=== PATIENT | female | born 1960 | race Caucasian/White ===

== ENCOUNTER 2016-06-13 16:07 | Emergency (ER) | payer MEDICARE, MEDICAID ==
[~2016-06-13 16:07] MED LIST: ATIV1TAB10 PO; CHLO25TA PO; DRIS50002 PO; DULE200A IN; HYGROTON PO; IBUP600T26 PO; K-TA10TA2 PO; LIPI20TA PO; METF850T PO; NEXI1CAP4 PO; NORCOTAB PO; TOPA25TA10 PO; VALT500T PO; VERA120T2 PO; VITA10002 PO; ZEBE5TAB PO; magnesium OR; voltaren
[2016-06-13] MEDS ORDERED: ONDANSETRON 4MG/2ML VIAL (J2405) As Ordered ONE (19:03)
[2016-06-13] MEDS ORDERED: KETOROLAC 30 MG/ML VIAL (J1885) As Ordered ONE (19:03)
[2016-06-13 19:08] LABS: BASO # 0.1 K/mm3 (0.0-0.2); EOS # 0.3 K/mm3 (0.0-0.50); EOS % 3.3 % (0.0-3.0); LARGE UNSTAINED CELL # 0.2 K/mm3 (0.0-0.4); LARGE UNSTAINED CELL % 1.8 % (0.0-4.0); LYMPH # 2.4 K/mm3 (1.5-4.5); LYMPH % 26.9 % (24.0-44.0); MEAN CORPUSCULAR HEMOGLOBIN 33.1 pg (27.0-33.0); MEAN CORPUSCULAR HGB CONC 34.7 g/dl (32.0-36.5); MEAN CORPUSCULAR VOLUME 95.3 fl (80.0-96.0); MONO # 0.2 K/mm3 (0.0-0.8); MONO % 2.6 % (0.0-5.0); NEUTROPHILS # 5.4 K/mm3 (1.8-7.7); NEUTROPHILS % 64.3 % (36.0-66.0); PLATELET COUNT, AUTOMATED 286 k/mm3 (150-450); RED CELL DISTRIBUTION WIDTH 12.9 % (11.5-14.5); WHITE BLOOD COUNT 8.4 K/mm3 (4.0-10.0)
[2016-06-13 19:28] LABS: ALBUMIN 3.8 GM/DL (3.2-5.2); ALBUMIN/GLOBULIN RATIO 1.12 (1.00-1.93); BILIRUBIN,DIRECT 0.1 MG/DL (0.0-0.2); BILIRUBIN,TOTAL 0.4 MG/DL (0.2-1.0); CALCIUM LEVEL 9.1 MG/DL (8.5-10.1); CREATININE FOR GFR 1.12 MG/DL (0.55-1.02); GLOMERULAR FILTRATION RATE 53.8 (>51); POTASSIUM SERUM 3.4 MEQ/L (3.5-5.1); TOTAL PROTEIN 7.2 GM/DL (6.4-8.2)
[2016-06-13] MEDS ORDERED: ISOVUE-370 76% 100ML VIAL (Q9967) As Ordered ONE (19:42)
--- NOTE | 2016-06-13 20:54 | REPUSA ---
CT of the abdomen and pelvis with contrast Clinical statement: Pain. Technique: Multiple axial CT images were obtained from the base of the lungs through the floor of the pelvis utilizing 5 mm axial slices after administration of nonionic intravenous contrast. Coronal an d sagittal reconstructions were also obtained. Comparison: 12/07/2015. Findings: Chest: The visualized lung bases are clear. A calcified granuloma in the left lung base is stable. Abdomen: The liver, spleen, pancreas, kidneys, gallbladder, and adrenal glands are unremarkable. The aorta is within normal limits. There is no evidence of abdominal lymphadenopathy or ascites. Pelvis: The bowel is unremarkable, with no obstructive or inflammatory changes. The appendix is angel l. The urinary bladder is within normal limits. The other pelvic structures appear grossly intact. Th ere is no evidence of pelvic lymphadenopathy or ascites. Bones: There are no suspicious osseous abnormalities seen. Moderate degenerative disc disease with di sc osteophyte complex at L5/S1 is stable. Impression: Unremarkable CT examination of the abdomen and pelvis. No acute abnormality to explain th e patient's pain. No significant change since the prior study.
--- NOTE | 2016-06-13 21:50 | EDDOCDS ---
Nurse's Notes [facility] Name: Ellen Arizmendi Age: 55 yrs Sex: Female : 1960 Arrival Date: 06/13/2016 Time: 16:07 Bed I2 / M2 Private MD: Dany Escobar Diagnosis: Strain of muscle, fascia and tendon of lower back Presentation: 06/13 16:38 Presenting complaint: Patient states: she has left flank pain - worse with movement and kcs coughing. Adult Sepsis Screening: The patient does not have new or worsening altered mentation. Patient's respiratory rate is less than 22. Systolic blood pressure is greater than 100. Patient has a qSOFA score of 0- Negative Sepsis Screen. Suicide/Homicide risk assessment- the patient denies having any suicidal and/or homicidal ideations and does not present with any other emotional, behavioral or mental health complaints. Status: Patient is not a dental service technician or dependent. Transition of care: patient was not received from another setting of care. 16:38 Acuity: BONNIE Level 3 kcs 16:38 Method Of Arrival: Walkin/Carried/Asstd kcs Triage Assessment: 16:42 General: Appears comfortable, well developed, well nourished, well groomed. Pain: kcs Location: left flank Pain currently is 7 out of 10 on a pain scale. HIV screening NA for this visit Offered previously. Neurological: Level of Consciousness is awake, alert. Respiratory: Airway is patent Respiratory effort is even, unlabored, Respiratory pattern is regular, symmetrical. Derm: Skin is intact, is healthy with good turgor, Skin is dry, Skin is normal. BENEFITS ADVISOR: 16:42 LMP N/A - Hysterectomy kcs Historical: - Allergies: Diovan; Erythromycin; Lisinopril; Propranolol; - Home Meds: 1. atorvastatin 40 mg oral tab 1 tab once daily 2. bisoprolol fumarate 5 mg oral tab once daily 3. Chlorpheniramine Maleate Unknown Oral 4. metformin 850 mg oral tab 2 times per day 5. nortriptyline 35 mg Oral cap daily 6. omeprazole 40 mg oral cpDR once daily 7. verapamil 240 mg Oral TbER 1 tab once daily 8. meclizine 12.5 mg Oral tab 2 times per day 9. Zofran (as hydrochloride) 4 mg oral tab every 8 hours as needed - PMHx: Chronic Renal Insufficiency; Diabetes - NIDDM: controlled; Hypercholesterolemia; Hypertension; Vertigo; - PSHx: Hysterectomy; Knee surgery- Left; Lumbar Puncture; pelvic reconstruction; - Social history: Smoking status: Patient states was never smoker of tobacco. No barriers to communication noted, The patient speaks fluent Italian. - Family history: Not pertinent. - : The pt / caregiver states he / she is not on anticoagulants. Home medication list is obtained from the patient, [employer] import data. - Exposure Risk Screening:: None identified. Screenin:14 Screening information is obtained from the patient. Fall risk: No risks identified. ead Assistance ADL's: requires no assistance with activities of daily living. Abuse/DV Screen: The patient / caregiver reports he/she is: not in a situation that causes fear, pain or injury. Nutritional screening: No deficits noted. Advance Directives: Currently, there is a health care proxy, Primary: Harry Martinez (Friend), phone #[phone]. Secondary: Ewa Samuel (daughter), phone # [phone]. home support is adequate. Assessment: 18:58 General: Appears in no apparent distress, Behavior is appropriate for age, cooperative. srm Neurological: No deficits noted. Respiratory: No deficits noted. GI: Abdomen is non- distended Bowel sounds present X 4 quads. Abd is tender to palpation in epigastric area. Derm: No deficits noted. 20:07 General: Appears in no apparent distress, comfortable, Behavior is appropriate for age, ead cooperative, this nurse accompanied pt to CT for injection. Pt tolerated well. Pt returned to room and provided with warm blanket. Updated of wait time for CT. IV fluids infusing. . Neurological: No deficits noted. Respiratory: Airway is patent Respiratory effort is even, unlabored. Derm: Skin is pink, warm & dry. 21:48 General: Appears in no apparent distress, comfortable, Behavior is appropriate for age, dsf cooperative. Pain: Pain currently is 2 out of 10 on a pain scale. Neurological: Level of Consciousness is awake, alert. Cardiovascular: Capillary refill < 3 seconds. Respiratory: Airway is patent Respiratory effort is even, unlabored, Respiratory pattern is regular, symmetrical. Derm: Skin is pink, warm & dry. Vital Signs: 16:10 BP 143 / 78; Pulse 78; Resp 16; Temp 98.2(O); Pulse Ox 99% ; Weight 83.91 kg; Height 5 cmb ft. 1 in. (154.94 cm); Pain 7/10; 19:39 BP 135 / 68; Pulse 69; Resp 18; Temp 97.5; Pulse Ox 97% ; Pain 3/10; ajs 21:39 BP 162 / 79; Pulse 61; Resp 18; Temp 97.1; Pulse Ox 95% ; Pain 2/10; ajs 16:10 Body Mass Index 34.96 (83.91 kg, 154.94 cm) cmb Vitals: 16:10 Log In Time: June 13, 2016 at 15:49. cmb ED Course: 16:08 Patient visited by Tiny Gutierrez. cmb 16:08 Patient moved to Waiting cmb 16:10 Dany Escobar MD is Private Physician. cmb 16:10 Patient moved to Pre RCE cmb 16:39 Triage Initiated kcs 18:13 Patient moved to Triage 2 bcj 18:14 Jack Bean PA is PHCP. mo1 18:14 Aminata Oglesby MD is Attending Physician. mo1 18:24 Patient visited by Jack Bean PA. mo1 18:29 Patient moved to I2 / M2 ar3 18:31 Urinalysis Sent. ar3 18:31 Urine Culture Sent. ar3 18:57 Basic Metabolic Profile Sent. srm 18:58 The patient / caregiver is instructed regarding the plan of care and ED course. Patient srm has correct armband on for positive identification. Placed in gown. Bed in low position. Call light in reach. 18:58 CBC with Diff Sent. srm 18:58 Lipase Sent. srm 18:58 Liver Profile Sent. srm 18:58 Inserted saline lock: 20 gauge in left antecubital area and blood collected. srm 18:59 Patient visited by Jessica Jordan RN. srm 19:40 Patient visited by Felicia Fowler. ajs 20:37 Patient visited by Deana Barclay,SHARAN. ead 21:33 CT ABD & PELVIS: IV Contrast Only Returned. EDMS 21:37 Dany Escobar MD is Referral Physician. mo1 21:44 Patient visited by Felicia Fowler. ajs 21:48 Discontinued lock intact, bleeding controlled, pressure dressing applied, No dsf redness/swelling at site. No procedures done that require assistance. Administered Medications: 17:10 Drug: Ondansetron 4 mg [ondansetron HCl 2 mg/mL intravenous solution (2 mL)] Route: ead IVP; Site: left antecubital; 17:12 Drug: ketorolac 30 mg [ketorolac 30 mg/mL (1 mL) injection solution (1 mL)] Route: IVP; ead Site: left antecubital; 19:13 Drug: NS 0.9% 1000 ml [sodium chloride 0.9 % intravenous solution] Route: IV; Rate: ead bolus; Site: left antecubital; 21:48 Follow up: IV Status: Completed infusion; IV Intake: 1000ml dsf Intake: 21:48 IV: 1000.00ml; Total: 1000.00ml. dsf Order Results: Lab Order: Basic Metabolic Profile; [facility] 06/13/16 18:55 Test: GLUCOSE, FASTING; Value: 102; Range: 70-105; Units: MG/DL; Status: F Test: BLOOD UREA NITROGEN; Value: 21; Range: 7-18; Abnormal: Above high normal; Units: MG/DL; Status: F Test: CREATININE FOR GFR; Value: 1.12; Range: 0.55-1.02; Abnormal: Above high normal; Units: MG/DL; Status: F Test: GLOMERULAR FILTRATION RATE; Value: 53.8; Range: >51; Status: F Test: SODIUM LEVEL; Value: 135; Range: 136-145; Abnormal: Below low normal; Units: MEQ/L; Status: F Test: POTASSIUM SERUM; Value: 3.4; Range: 3.5-5.1; Abnormal: Below low normal; Units: MEQ/L; Status: F Test: CHLORIDE LEVEL; Value: 96; Range: 98-107; Abnormal: Below low normal; Units: MEQ/L; Status: F Test: CARBON DIOXIDE LEVEL; Value: 30; Range: 21-32; Units: MEQ/L; Status: F Test: ANION GAP; Value: 9; Range: 8-16; Units: MEQ/L; Status: F Test: CALCIUM LEVEL; Value: 9.1; Range: 8.5-10.1; Units: MG/DL; Status: F Test Note: ; Units are mL/min/1.73 m2 Chronic Kidney Disease Staging per NKF: Stage I & II GFR >=60 Normal to Mildly Decreased Stage III GFR 30-59 Moderately Decreased Stage IV GFR 15-29 Severely Decreased Stage V GFR <15 Very Little GFR Left ESRD GFR <15 on FILER METAL PATTERNS Lab Order: CBC with Diff; [facility] 06/13/16 18:55 Test: WHITE BLOOD COUNT; Value: 8.4; Range: 4.0-10.0; Units: K/mm3; Status: F Test: RED BLOOD COUNT; Value: 3.91; Range: 4.00-5.40; Abnormal: Below low normal; Units: M/mm3; Status: F Test: HEMOGLOBIN; Value: 12.9; Range: 12.0-16.0; Units: g/dl; Status: F Test: HEMATOCRIT; Value: 37.3; Range: 36.0-47.0; Units: %; Status: F Test: MEAN CORPUSCULAR VOLUME; Value: 95.3; Range: 80.0-96.0; Units: fl; Status: F Test: MEAN CORPUSCULAR HEMOGLOBIN; Value: 33.1; Range: 27.0-33.0; Abnormal: Above high normal; Units: pg; Status: F Test: MEAN CORPUSCULAR HGB CONC; Value: 34.7; Range: 32.0-36.5; Units: g/dl; Status: F Test: RED CELL DISTRIBUTION WIDTH; Value: 12.9; Range: 11.5-14.5; Units: %; Status: F Test: PLATELET COUNT, AUTOMATED; Value: 286; Range: 150-450; Units: k/mm3; Status: F Test: NEUTROPHILS %; Value: 64.3; Range: 36.0-66.0; Units: %; Status: F Test: LYMPH %; Value: 26.9; Range: 24.0-44.0; Units: %; Status: F Test: MONO %; Value: 2.6; Range: 0.0-5.0; Units: %; Status: F Test: EOS %; Value: 3.3; Range: 0.0-3.0; Abnormal: Above high normal; Units: %; Status: F Test: BASO %; Value: 1.0; Range: 0.0-1.0; Units: %; Status: F Test: LARGE UNSTAINED CELL %; Value: 1.8; Range: 0.0-4.0; Units: %; Status: F Test: NEUTROPHILS #; Value: 5.4; Range: 1.8-7.7; Units: K/mm3; Status: F Test: LYMPH #; Value: 2.4; Range: 1.5-4.5; Units: K/mm3; Status: F Test: MONO #; Value: 0.2; Range: 0.0-0.8; Units: K/mm3; Status: F Test: EOS #; Value: 0.3; Range: 0.0-0.50; Units: K/mm3; Status: F Test: BASO #; Value: 0.1; Range: 0.0-0.2; Units: K/mm3; Status: F Test: LARGE UNSTAINED CELL #; Value: 0.2; Range: 0.0-0.4; Units: K/mm3; Status: F Lab Order: Lipase; SPEC'M 06/13/16 18:55 Test: LIPASE; Value: 111; Range: 73-393; Units: U/L; Status: F Lab Order: Liver Profile; SPEC'M 06/13/16 18:55 Test: AST/SGOT; Value: 10; Range: 15-37; Abnormal: Below low normal; Units: U/L; Status: F Test: ALT/SGPT; Value: 22; Range: 12-78; Units: U/L; Status: F Test: ALKALINE PHOSPHATASE; Value: 83; Range: 45-117; Units: U/L; Status: F Test: BILIRUBIN,TOTAL; Value: 0.4; Range: 0.2-1.0; Units: MG/DL; Status: F Test: BILIRUBIN,DIRECT; Value: 0.1; Range: 0.0-0.2; Units: MG/DL; Status: F Test: TOTAL PROTEIN; Value: 7.2; Range: 6.4-8.2; Units: GM/DL; Status: F Test: ALBUMIN; Value: 3.8; Range: 3.2-5.2; Units: GM/DL; Status: F Test: ALBUMIN/GLOBULIN RATIO; Value: 1.12; Range: 1.00-1.93; Status: F Lab Order: Urinalysis; SPEC'M 06/13/16 18:31 Test: APPEARANCE, URINE; Value: CLEAR; Range: CLEAR; Status: F Test: COLOR, URINE; Value: YELLOW; Range: YELLOW; Status: F Test: PH,URINE; Value: 7.0; Range: 5.0-9.0; Units: UNITS; Status: F Test: SPECIFIC GRAVITY URINE AUTO; Value: 1.025; Range: 1.002-1.035; Status: F Test: PROTEIN, URINE AUTO; Value: NEGATIVE; Range: NEGATIVE; Units: mg/dL; Status: F Test: GLUCOSE, URINE (UA) AUTO; Value: NEGATIVE; Range: NEGATIVE; Units: mg/dL; Status: F Test: KETONE, URINE AUTO; Value: TRACE; Range: NEGATIVE; Abnormal: Above high normal; Units: mg/dL; Status: F Test: UROBILINOGEN, URINE AUTO; Value: 2.0; Range: 0.0-2.0; Abnormal: Above high normal; Units: mg/dL; Status: F Test: BILIRUBIN, URINE AUTO; Value: NEGATIVE; Range: NEGATIVE; Status: F Test: NITRITE, URINE AUTO; Value: NEGATIVE; Range: NEGATIVE; Status: F Test: LEUKOCYTE ESTERASE, URINE AUTO; Value: NEGATIVE; Range: NEGATIVE; Status: F Test: BLOOD, URINE BLOOD; Value: NEGATIVE; Range: NEGATIVE; Status: F Test: WBC, URINE AUTO; Value: 1; Range: 0-3; Units: /HPF; Status: F Test: RBC, URINE AUTO; Value: 3; Range: 0-3; Units: /HPF; Status: F Test: BACTERIA, URINE AUTO; Value: NEGATIVE; Range: NEGATIVE; Status: F Test: SQUAMOUS EPITHELIAL CELL UR AU; Value: 0; Range: 0-6; Units: /HPF; Status: F Test: MUCUS, URINE; Value: SMALL; Range: NEGATIVE; Status: F Test: HYALINE CAST, URINE AUTO; Value: 0; Range: 0-1; Units: /LPF; Status: F Radiology Order: CT ABD & PELVIS: IV Contrast Only Test: CT ABD & PELVIS: IV Contrast Only REASON FOR EXAMINATION: left abd pain, left flank luis felipe; ; CT of the abdomen and pelvis with contrast; Clinical statement: Pain.; Technique: Multiple axial CT images were obtained from the base of the lungs through the floor of the; pelvis utilizing 5 mm axial slices after administration of nonionic intravenous contrast. Coronal an; d sagittal reconstructions were also obtained.; Comparison: 12/07/2015.; Findings:; Chest: The visualized lung bases are clear. A calcified granuloma in the left lung base is stable.; Abdomen: The liver, spleen, pancreas, kidneys, gallbladder, and adrenal glands are unremarkable. The; aorta is within normal limits. There is no evidence of abdominal lymphadenopathy or ascites.; Pelvis: The bowel is unremarkable, with no obstructive or inflammatory changes. The appendix is angel; l. The urinary bladder is within normal limits. The other pelvic structures appear grossly intact. Th; ere is no evidence of pelvic lymphadenopathy or ascites.; Bones: There are no suspicious osseous abnormalities seen. Moderate degenerative disc disease with di; sc osteophyte complex at L5/S1 is stable.; Impression: Unremarkable CT examination of the abdomen and pelvis. No acute abnormality to explain th; e patient's pain. No significant change since the prior study.; ; Outcome: 21:37 Discharge ordered by Provider. mo1 21:48 Discharge Assessment: Patient awake, alert and oriented x 3. No cognitive and/or dsf functional deficits noted. Patient verbalized understanding of disposition instructions. patient administered narcotics - no. The following High Risk Discharge criteria are identified: None. Discharged to home ambulatory. Condition: stable. Discharge instructions given to patient, Instructed on discharge instructions, follow up and referral plans. medication usage, Demonstrated understanding of instructions, medications, Pt was receptive of discharge instructions/ teaching. Prescriptions given X 1. Property sent home with patient. 21:49 CT Study completed. dsf 21:49 Patient left the ED. f Signatures: Dispatcher [employer] EDMS Erica Ross RN Alexi Bruno RN RN bcj Michelson, Staci, RN RN srm Rabon, Alicia, BENCH GRINDER BENCH GRINDER ar3 Ryanne Gu RN RN dsf Felicia Fowler [place] cmb O'Hagan, Michael, PA PA mo1 Deana Barclay RN RN ead MTDD
--- NOTE | 2016-06-13 21:50 | EDDOCDS ---
Physician Documentation [facility] Name: Ellen Arizmendi Age: 55 yrs Sex: Female : 1960 Arrival Date: 06/13/2016 Time: 16:07 Bed I2 / M2 Private MD: Dany Escobar Disposition: 06/13/16 21:37 Discharged to Home/Self Care. Impression: Strain of muscle, fascia and tendon of lower back. - Condition is Stable. - Discharge Instructions: Back Pain, Adult, Muscle Strain. - Prescriptions for Ibuprofen 800 mg Oral Tablet - take 1 tablet by ORAL route every 8 hours As needed take with food; 30 tablet. - Medication Reconciliation, Local Pharmacy Hours form. - Follow up: Dany Escobar MD; When: Call to arrange an appointment; Reason: Recheck today's complaints, Continuance of care. - Problem is new. - Symptoms have improved. Historical: - Allergies: Diovan; Erythromycin; Lisinopril; Propranolol; - Home Meds: 1. atorvastatin 40 mg oral tab 1 tab once daily 2. bisoprolol fumarate 5 mg oral tab once daily 3. Chlorpheniramine Maleate Unknown Oral 4. metformin 850 mg oral tab 2 times per day 5. nortriptyline 35 mg Oral cap daily 6. omeprazole 40 mg oral cpDR once daily 7. verapamil 240 mg Oral TbER 1 tab once daily 8. meclizine 12.5 mg Oral tab 2 times per day 9. Zofran (as hydrochloride) 4 mg oral tab every 8 hours as needed - PMHx: Chronic Renal Insufficiency; Diabetes - NIDDM: controlled; Hypercholesterolemia; Hypertension; Vertigo; - PSHx: Hysterectomy; Knee surgery- Left; Lumbar Puncture; pelvic reconstruction; - Social history: Smoking status: Patient states was never smoker of tobacco. No barriers to communication noted, The patient speaks fluent Yoruba. - Family history: Not pertinent. - : The pt / caregiver states he / she is not on anticoagulants. Home medication list is obtained from the patient, [employer] import data. - Exposure Risk Screening:: None identified. 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 1 in. (154.94 cm); Pain 7/10; 19:39 BP 135 / 68; Pulse 69; Resp 18; Temp 97.5; Pulse Ox 97% ; Pain 3/10; ajs 21:39 BP 162 / 79; Pulse 61; Resp 18; Temp 97.1; Pulse Ox 95% ; Pain 2/10; ajs 16:10 Body Mass Index 34.96 (83.91 kg, 154.94 cm) cmb MDM: 18:19 NS 0.9% 1000 ml IV at bolus once ordered. mo1 18:19 Ondansetron 4 mg IVP once ordered. mo1 18:19 ketorolac 30 mg IVP once ordered. mo1 18:19 Undress patient appropriately for examination ordered. mo1 18:21 Basic Metabolic Profile Ordered. EDMS 18:21 CBC with Diff Ordered. EDMS 18:21 Lipase Ordered. EDMS 18:21 Liver Profile Ordered. EDMS 18:21 Urinalysis Ordered. EDMS 18:21 Urine Culture Ordered. EDMS 18:21 NOTHING BY MOUTH+DIET ordered. EDMS 19:11 CBC with Diff Reviewed. mo1 19:22 Urinalysis Reviewed. mo1 19:40 CT ABD & PELVIS: IV Contrast Only Ordered. EDMS 19:45 Basic Metabolic Profile Reviewed. mo1 19:45 Liver Profile Reviewed. mo1 19:45 Lipase Reviewed. mo1 21:03 Financial registration complete. [id number] Administered Medications: 17:10 Drug: Ondansetron 4 mg [ondansetron HCl 2 mg/mL intravenous solution (2 mL)] Route: ead IVP; Site: left antecubital; 17:12 Drug: ketorolac 30 mg [ketorolac 30 mg/mL (1 mL) injection solution (1 mL)] Route: IVP; ead Site: left antecubital; 19:13 Drug: NS 0.9% 1000 ml [sodium chloride 0.9 % intravenous solution] Route: IV; Rate: ead bolus; Site: left antecubital; 21:48 Follow up: IV Status: Completed infusion; IV Intake: 1000ml dsf Signatures: Dispatcher [employer] Erica Lorenzo RN RN kcs Michelson, Staci, RN RN srm Fuller, Desiree, RN RN dsf Jack Bean PA PA mo1 Zulma Valencia, Reg Reg [id number] Deana Barclay RN MTDD
--- NOTE | 2016-06-15 22:50 | EDDOCDS ---
Nurse's Notes Name: Ellen Arizmendi Age: 55 yrs Sex: Female : 1960 Arrival Date: 06/13/2016 Time: 16:07 Bed I2 / M2 Private MD: Dany Escobar Diagnosis: Strain of muscle, fascia and tendon of lower back Presentation: 06/13 16:38 Presenting complaint: Patient states: she has left flank pain - worse with movement and kcs coughing. Adult Sepsis Screening: The patient does not have new or worsening altered mentation. Patient's respiratory rate is less than 22. Systolic blood pressure is greater than 100. Patient has a qSOFA score of 0- Negative Sepsis Screen. Suicide/Homicide risk assessment- the patient denies having any suicidal and/or homicidal ideations and does not present with any other emotional, behavioral or mental health complaints. Status: Patient is not a automotive fuel injection servicer or dependent. Transition of care: patient was not received from another setting of care. 16:38 Acuity: BONNIE Level 3 kcs 16:38 Method Of Arrival: Walkin/Carried/Asstd kcs Triage Assessment: 16:42 General: Appears comfortable, well developed, well nourished, well groomed. Pain: kcs Location: left flank Pain currently is 7 out of 10 on a pain scale. HIV screening NA for this visit Offered previously. Neurological: Level of Consciousness is awake, alert. Respiratory: Airway is patent Respiratory effort is even, unlabored, Respiratory pattern is regular, symmetrical. Derm: Skin is intact, is healthy with good turgor, Skin is dry, Skin is normal. 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 atorvastatin 40 mg oral tab 1 tab once daily 2. bisoprolol fumarate 5 mg oral tab once daily 3. Chlorpheniramine Maleate Unknown Oral 4. metformin 850 mg oral tab 2 times per day 5. nortriptyline 35 mg Oral cap daily 6. omeprazole 40 mg oral cpDR once daily 7. verapamil 240 mg Oral TbER 1 tab once daily 8. meclizine 12.5 mg Oral tab 2 times per day 9. Zofran (as hydrochloride) 4 mg oral tab every 8 hours as needed - PMHx: Chronic Renal Insufficiency; Diabetes - NIDDM: controlled; Hypercholesterolemia; Hypertension; Vertigo; - PSHx: Hysterectomy; Knee surgery- Left; Lumbar Puncture; pelvic reconstruction; - Social history: Smoking status: Patient states was never smoker of tobacco. No barriers to communication noted, The patient speaks fluent Bruneian. - Family history: Not pertinent. - : The pt / caregiver states he / she is not on anticoagulants. Home medication list is obtained from the patient, [employer] import data. - Exposure Risk Screening:: None identified. Screenin:14 Screening information is obtained from the patient. Fall risk: No risks identified. ead Assistance ADL's: requires no assistance with activities of daily living. Abuse/DV Screen: The patient / caregiver reports he/she is: not in a situation that causes fear, pain or injury. Nutritional screening: No deficits noted. Advance Directives: Currently, there is a health care proxy, Primary: Harry Martinez (Friend), phone #[phone]. Secondary: Ewa Samuel (daughter), phone # [phone]. home support is adequate. Assessment: 18:58 General: Appears in no apparent distress, Behavior is appropriate for age, cooperative. srm Neurological: No deficits noted. Respiratory: No deficits noted. GI: Abdomen is non- distended Bowel sounds present X 4 quads. Abd is tender to palpation in epigastric area. Derm: No deficits noted. 20:07 General: Appears in no apparent distress, comfortable, Behavior is appropriate for age, ead cooperative, this nurse accompanied pt to CT for injection. Pt tolerated well. Pt returned to room and provided with warm blanket. Updated of wait time for CT. IV fluids infusing. . Neurological: No deficits noted. Respiratory: Airway is patent Respiratory effort is even, unlabored. Derm: Skin is pink, warm & dry. 21:48 General: Appears in no apparent distress, comfortable, Behavior is appropriate for age, dsf cooperative. Pain: Pain currently is 2 out of 10 on a pain scale. Neurological: Level of Consciousness is awake, alert. Cardiovascular: Capillary refill < 3 seconds. Respiratory: Airway is patent Respiratory effort is even, unlabored, Respiratory pattern is regular, symmetrical. Derm: Skin is pink, warm & dry. Vital Signs: 16:10 BP 143 / 78; Pulse 78; Resp 16; Temp 98.2(O); Pulse Ox 99% ; Weight 83.91 kg; Height 5 cmb ft. 1 in. (154.94 cm); Pain 7/10; 19:39 BP 135 / 68; Pulse 69; Resp 18; Temp 97.5; Pulse Ox 97% ; Pain 3/10; ajs 21:39 BP 162 / 79; Pulse 61; Resp 18; Temp 97.1; Pulse Ox 95% ; Pain 2/10; ajs 16:10 Body Mass Index 34.96 (83.91 kg, 154.94 cm) cmb Vitals: 16:10 Log In Time: June 13, 2016 at 15:49. cmb ED Course: 16:08 Patient visited by Tiny Gutierrez. cmb 16:08 Patient moved to Waiting cmb 16:10 Dany Escobar MD is Private Physician. cmb 16:10 Patient moved to Pre RCE cmb 16:39 Triage Initiated kcs 18:13 Patient moved to Triage 2 bcj 18:14 Jack Bean PA is PHCP. mo1 18:14 Aminata Oglesby MD is Attending Physician. mo1 18:24 Patient visited by Jack Bean PA. mo1 18:29 Patient moved to I2 / M2 ar3 18:31 Urinalysis Sent. ar3 18:31 Urine Culture Sent. ar3 18:57 Basic Metabolic Profile Sent. srm 18:58 The patient / caregiver is instructed regarding the plan of care and ED course. Patient srm has correct armband on for positive identification. Placed in gown. Bed in low position. Call light in reach. 18:58 CBC with Diff Sent. srm 18:58 Lipase Sent. srm 18:58 Liver Profile Sent. srm 18:58 Inserted saline lock: 20 gauge in left antecubital area and blood collected. srm 18:59 Patient visited by Jessica Jordan RN. srm 19:40 Patient visited by Felicia Fowler. ajs 20:37 Patient visited by Deana Barclay,SHARAN. ead 21:33 CT ABD & PELVIS: IV Contrast Only Returned. EDMS 21:37 Dany Escobar MD is Referral Physician. mo1 21:44 Patient visited by Felicia Fowler. ajs 21:48 Discontinued lock intact, bleeding controlled, pressure dressing applied, No dsf redness/swelling at site. No procedures done that require assistance. 22:51 [facility] Payment Agreement was scanned into dINK and attached to record. [email or web address] 06/14 11:27 T-Sheet-- Draft Copy was scanned into dINK and attached to record. gb Administered Medications: 06/13 17:10 Drug: Ondansetron 4 mg [ondansetron HCl 2 mg/mL intravenous solution (2 mL)] Route: ead IVP; Site: left antecubital; 17:12 Drug: ketorolac 30 mg [ketorolac 30 mg/mL (1 mL) injection solution (1 mL)] Route: IVP; ead Site: left antecubital; 19:13 Drug: NS 0.9% 1000 ml [sodium chloride 0.9 % intravenous solution] Route: IV; Rate: ead bolus; Site: left antecubital; 21:48 Follow up: IV Status: Completed infusion; IV Intake: 1000ml dsf Intake: 21:48 IV: 1000.00ml; Total: 1000.00ml. dsf Order Results: Lab Order: Basic Metabolic Profile; SPEC'M 06/13/16 18:55 Test: GLUCOSE, FASTING; Value: 102; Range: 70-105; Units: MG/DL; Status: F Test: BLOOD UREA NITROGEN; Value: 21; Range: 7-18; Abnormal: Above high normal; Units: MG/DL; Status: F Test: CREATININE FOR GFR; Value: 1.12; Range: 0.55-1.02; Abnormal: Above high normal; Units: MG/DL; Status: F Test: GLOMERULAR FILTRATION RATE; Value: 53.8; Range: >51; Status: F Test: SODIUM LEVEL; Value: 135; Range: 136-145; Abnormal: Below low normal; Units: MEQ/L; Status: F Test: POTASSIUM SERUM; Value: 3.4; Range: 3.5-5.1; Abnormal: Below low normal; Units: MEQ/L; Status: F Test: CHLORIDE LEVEL; Value: 96; Range: 98-107; Abnormal: Below low normal; Units: MEQ/L; Status: F Test: CARBON DIOXIDE LEVEL; Value: 30; Range: 21-32; Units: MEQ/L; Status: F Test: ANION GAP; Value: 9; Range: 8-16; Units: MEQ/L; Status: F Test: CALCIUM LEVEL; Value: 9.1; Range: 8.5-10.1; Units: MG/DL; Status: F Test Note: ; Units are mL/min/1.73 m2 Chronic Kidney Disease Staging per NKF: Stage I & II GFR >=60 Normal to Mildly Decreased Stage III GFR 30-59 Moderately Decreased Stage IV GFR 15-29 Severely Decreased Stage V GFR <15 Very Little GFR Left ESRD GFR <15 on SECONDARY SOCIAL STUDIES TEACHER Lab Order: CBC with Diff; SPEC'M 06/13/16 18:55 Test: WHITE BLOOD COUNT; Value: 8.4; Range: 4.0-10.0; Units: K/mm3; Status: F Test: RED BLOOD COUNT; Value: 3.91; Range: 4.00-5.40; Abnormal: Below low normal; Units: M/mm3; Status: F Test: HEMOGLOBIN; Value: 12.9; Range: 12.0-16.0; Units: g/dl; Status: F Test: HEMATOCRIT; Value: 37.3; Range: 36.0-47.0; Units: %; Status: F Test: MEAN CORPUSCULAR VOLUME; Value: 95.3; Range: 80.0-96.0; Units: fl; Status: F Test: MEAN CORPUSCULAR HEMOGLOBIN; Value: 33.1; Range: 27.0-33.0; Abnormal: Above high normal; Units: pg; Status: F Test: MEAN CORPUSCULAR HGB CONC; Value: 34.7; Range: 32.0-36.5; Units: g/dl; Status: F Test: RED CELL DISTRIBUTION WIDTH; Value: 12.9; Range: 11.5-14.5; Units: %; Status: F Test: PLATELET COUNT, AUTOMATED; Value: 286; Range: 150-450; Units: k/mm3; Status: F Test: NEUTROPHILS %; Value: 64.3; Range: 36.0-66.0; Units: %; Status: F Test: LYMPH %; Value: 26.9; Range: 24.0-44.0; Units: %; Status: F Test: MONO %; Value: 2.6; Range: 0.0-5.0; Units: %; Status: F Test: EOS %; Value: 3.3; Range: 0.0-3.0; Abnormal: Above high normal; Units: %; Status: F Test: BASO %; Value: 1.0; Range: 0.0-1.0; Units: %; Status: F Test: LARGE UNSTAINED CELL %; Value: 1.8; Range: 0.0-4.0; Units: %; Status: F Test: NEUTROPHILS #; Value: 5.4; Range: 1.8-7.7; Units: K/mm3; Status: F Test: LYMPH #; Value: 2.4; Range: 1.5-4.5; Units: K/mm3; Status: F Test: MONO #; Value: 0.2; Range: 0.0-0.8; Units: K/mm3; Status: F Test: EOS #; Value: 0.3; Range: 0.0-0.50; Units: K/mm3; Status: F Test: BASO #; Value: 0.1; Range: 0.0-0.2; Units: K/mm3; Status: F Test: LARGE UNSTAINED CELL #; Value: 0.2; Range: 0.0-0.4; Units: K/mm3; Status: F Lab Order: Lipase; SPEC' 06/13/16 18:55 Test: LIPASE; Value: 111; Range: 73-393; Units: U/L; Status: F Lab Order: Liver Profile; SPEC' 06/13/16 18:55 Test: AST/SGOT; Value: 10; Range: 15-37; Abnormal: Below low normal; Units: U/L; Status: F Test: ALT/SGPT; Value: 22; Range: 12-78; Units: U/L; Status: F Test: ALKALINE PHOSPHATASE; Value: 83; Range: 45-117; Units: U/L; Status: F Test: BILIRUBIN,TOTAL; Value: 0.4; Range: 0.2-1.0; Units: MG/DL; Status: F Test: BILIRUBIN,DIRECT; Value: 0.1; Range: 0.0-0.2; Units: MG/DL; Status: F Test: TOTAL PROTEIN; Value: 7.2; Range: 6.4-8.2; Units: GM/DL; Status: F Test: ALBUMIN; Value: 3.8; Range: 3.2-5.2; Units: GM/DL; Status: F Test: ALBUMIN/GLOBULIN RATIO; Value: 1.12; Range: 1.00-1.93; Status: F Lab Order: Urinalysis; SPEC'M 06/13/16 18:31 Test: APPEARANCE, URINE; Value: CLEAR; Range: CLEAR; Status: F Test: COLOR, URINE; Value: YELLOW; Range: YELLOW; Status: F Test: PH,URINE; Value: 7.0; Range: 5.0-9.0; Units: UNITS; Status: F Test: SPECIFIC GRAVITY URINE AUTO; Value: 1.025; Range: 1.002-1.035; Status: F Test: PROTEIN, URINE AUTO; Value: NEGATIVE; Range: NEGATIVE; Units: mg/dL; Status: F Test: GLUCOSE, URINE (UA) AUTO; Value: NEGATIVE; Range: NEGATIVE; Units: mg/dL; Status: F Test: KETONE, URINE AUTO; Value: TRACE; Range: NEGATIVE; Abnormal: Above high normal; Units: mg/dL; Status: F Test: UROBILINOGEN, URINE AUTO; Value: 2.0; Range: 0.0-2.0; Abnormal: Above high normal; Units: mg/dL; Status: F Test: BILIRUBIN, URINE AUTO; Value: NEGATIVE; Range: NEGATIVE; Status: F Test: NITRITE, URINE AUTO; Value: NEGATIVE; Range: NEGATIVE; Status: F Test: LEUKOCYTE ESTERASE, URINE AUTO; Value: NEGATIVE; Range: NEGATIVE; Status: F Test: BLOOD, URINE BLOOD; Value: NEGATIVE; Range: NEGATIVE; Status: F Test: WBC, URINE AUTO; Value: 1; Range: 0-3; Units: /HPF; Status: F Test: RBC, URINE AUTO; Value: 3; Range: 0-3; Units: /HPF; Status: F Test: BACTERIA, URINE AUTO; Value: NEGATIVE; Range: NEGATIVE; Status: F Test: SQUAMOUS EPITHELIAL CELL UR AU; Value: 0; Range: 0-6; Units: /HPF; Status: F Test: MUCUS, URINE; Value: SMALL; Range: NEGATIVE; Status: F Test: HYALINE CAST, URINE AUTO; Value: 0; Range: 0-1; Units: /LPF; Status: F Lab Order: Urine Culture; SPEC'M 06/13/16 18:31 Test: URINE CULTURE; Value: URINE CULTURE RESULT NO GROWTH; Status: F Radiology Order: CT ABD & PELVIS: IV Contrast Only Test: CT ABD & PELVIS: IV Contrast Only REASON FOR EXAMINATION: left abd pain, left flank luis felipe; ; CT of the abdomen and pelvis with contrast; Clinical statement: Pain.; Technique: Multiple axial CT images were obtained from the base of the lungs through the floor of the; pelvis utilizing 5 mm axial slices after administration of nonionic intravenous contrast. Coronal an; d sagittal reconstructions were also obtained.; Comparison: 12/07/2015.; Findings:; Chest: The visualized lung bases are clear. A calcified granuloma in the left lung base is stable.; Abdomen: The liver, spleen, pancreas, kidneys, gallbladder, and adrenal glands are unremarkable. The; aorta is within normal limits. There is no evidence of abdominal lymphadenopathy or ascites.; Pelvis: The bowel is unremarkable, with no obstructive or inflammatory changes. The appendix is angel; l. The urinary bladder is within normal limits. The other pelvic structures appear grossly intact. Th; ere is no evidence of pelvic lymphadenopathy or ascites.; Bones: There are no suspicious osseous abnormalities seen. Moderate degenerative disc disease with di; sc osteophyte complex at L5/S1 is stable.; Impression: Unremarkable CT examination of the abdomen and pelvis. No acute abnormality to explain th; e patient's pain. No significant change since the prior study.; ; Outcome: 21:37 Discharge ordered by Provider. mo1 21:48 Discharge Assessment: Patient awake, alert and oriented x 3. No cognitive and/or dsf functional deficits noted. Patient verbalized understanding of disposition instructions. patient administered narcotics - no. The following High Risk Discharge criteria are identified: None. Discharged to home ambulatory. Condition: stable. Discharge instructions given to patient, Instructed on discharge instructions, follow up and referral plans. medication usage, Demonstrated understanding of instructions, medications, Pt was receptive of discharge instructions/ teaching. Prescriptions given X 1. Property sent home with patient. 21:49 CT Study completed. dsf 21:49 Patient left the ED. dsf Signatures: Dispatcher [facility] Erica Ross, RN RN Alexi Goel, RN RN rupert Jordan, Jessica, RN RN srm Dell, Shoshana, Reg Reg gb Cici, Chey, COLLEGE ARCHIVIST COLLEGE ARCHIVIST ar3 Riccardo,Ryanne,RN RN rosita Fowler, Felicia Gutierrez, Jack Moore PA PA mo1 Ning,Deana,RN RN Zulma Beltrán, Reg Reg [email or web address] Chart Complete MTDD
--- NOTE | 2016-06-15 22:50 | EDDOCDS ---
Physician Documentation [facility] Name: Ellen Arizmendi Age: 55 yrs Sex: Female : 1960 Arrival Date: 06/13/2016 Time: 16:07 Bed I2 / M2 Private MD: Dany Escobar Disposition: 06/13/16 21:37 Discharged to Home/Self Care. Impression: Strain of muscle, fascia and tendon of lower back. - Condition is Stable. - Discharge Instructions: Back Pain, Adult, Muscle Strain. - Prescriptions for Ibuprofen 800 mg Oral Tablet - take 1 tablet by ORAL route every 8 hours As needed take with food; 30 tablet. - Medication Reconciliation, Local Pharmacy Hours form. - Follow up: Dany Escobar MD; When: Call to arrange an appointment; Reason: Recheck today's complaints, Continuance of care. - Problem is new. - Symptoms have improved. Historical: - Allergies: Diovan; Erythromycin; Lisinopril; Propranolol; - Home Meds: 1. atorvastatin 40 mg oral tab 1 tab once daily 2. bisoprolol fumarate 5 mg oral tab once daily 3. Chlorpheniramine Maleate Unknown Oral 4. metformin 850 mg oral tab 2 times per day 5. nortriptyline 35 mg Oral cap daily 6. omeprazole 40 mg oral cpDR once daily 7. verapamil 240 mg Oral TbER 1 tab once daily 8. meclizine 12.5 mg Oral tab 2 times per day 9. Zofran (as hydrochloride) 4 mg oral tab every 8 hours as needed - PMHx: Chronic Renal Insufficiency; Diabetes - NIDDM: controlled; Hypercholesterolemia; Hypertension; Vertigo; - PSHx: Hysterectomy; Knee surgery- Left; Lumbar Puncture; pelvic reconstruction; - Social history: Smoking status: Patient states was never smoker of tobacco. No barriers to communication noted, The patient speaks fluent [place]. - Family history: Not pertinent. - : The pt / caregiver states he / she is not on anticoagulants. Home medication list is obtained from the patient, [employer] import data. - Exposure Risk Screening:: None identified. 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 1 in. (154.94 cm); Pain 7/10; 19:39 BP 135 / 68; Pulse 69; Resp 18; Temp 97.5; Pulse Ox 97% ; Pain 3/10; ajs 21:39 BP 162 / 79; Pulse 61; Resp 18; Temp 97.1; Pulse Ox 95% ; Pain 2/10; ajs 16:10 Body Mass Index 34.96 (83.91 kg, 154.94 cm) cmb MDM: 18:19 NS 0.9% 1000 ml IV at bolus once ordered. mo1 18:19 Ondansetron 4 mg IVP once ordered. mo1 18:19 ketorolac 30 mg IVP once ordered. mo1 18:19 Undress patient appropriately for examination ordered. mo1 18:21 Basic Metabolic Profile Ordered. EDMS 18:21 CBC with Diff Ordered. EDMS 18:21 Lipase Ordered. EDMS 18:21 Liver Profile Ordered. EDMS 18:21 Urinalysis Ordered. EDMS 18:21 Urine Culture Ordered. EDMS 18:21 NOTHING BY MOUTH+DIET ordered. EDMS 19:11 CBC with Diff Reviewed. mo1 19:22 Urinalysis Reviewed. mo1 19:40 CT ABD & PELVIS: IV Contrast Only Ordered. EDMS 19:45 Basic Metabolic Profile Reviewed. mo1 19:45 Liver Profile Reviewed. mo1 19:45 Lipase Reviewed. mo1 21:03 Financial registration complete. [email or web address] 22:51 [facility] Payment Agreement was scanned into [employer] and attached to record. [email or web address] 06/14 11:27 T-Sheet-- Draft Copy was scanned into [employer] and attached to record. gb Administered Medications: 06/13 17:10 Drug: Ondansetron 4 mg [ondansetron HCl 2 mg/mL intravenous solution (2 mL)] Route: ead IVP; Site: left antecubital; 17:12 Drug: ketorolac 30 mg [ketorolac 30 mg/mL (1 mL) injection solution (1 mL)] Route: IVP; ead Site: left antecubital; 19:13 Drug: NS 0.9% 1000 ml [sodium chloride 0.9 % intravenous solution] Route: IV; Rate: ead bolus; Site: left antecubital; 21:48 Follow up: IV Status: Completed infusion; IV Intake: 1000ml dsf Signatures: Dispatcher [employer] Erica Lorenzo RN RN [facility] Jessica Jordan RN RN [facility] Shoshana Sharpe, Reg Reg gb Ryanne Gu RN RN dsf Jack Bean PA PA mo1 Zulma Valencia, Reg Reg ks16 Deana Barclay RN The chart was reviewed and I authenticate all verbal orders and agree with the evaluation and treatment provided.Attachments: 22:51 [facility] Payment Agreement [email or web address] 06/14 11:27 T-Sheet-- Draft Copy gb Chart Complete MTDD
--- NOTE | 2016-06-15 22:50 | EDDOCDS ---
Physician Documentation [facility] Name: Ellen Arizmendi Age: 55 yrs Sex: Female : 1960 Arrival Date: 06/13/2016 Time: 16:07 Bed I2 / M2 Private MD: Dany Escobar Disposition: 06/13/16 21:37 Discharged to Home/Self Care. Impression: Strain of muscle, fascia and tendon of lower back. - Condition is Stable. - Discharge Instructions: Back Pain, Adult, Muscle Strain. - Prescriptions for Ibuprofen 800 mg Oral Tablet - take 1 tablet by ORAL route every 8 hours As needed take with food; 30 tablet. - Medication Reconciliation, Local Pharmacy Hours form. - Follow up: Dany Escobar MD; When: Call to arrange an appointment; Reason: Recheck today's complaints, Continuance of care. - Problem is new. - Symptoms have improved. Historical: - Allergies: Diovan; Erythromycin; Lisinopril; Propranolol; - Home Meds: 1. atorvastatin 40 mg oral tab 1 tab once daily 2. bisoprolol fumarate 5 mg oral tab once daily 3. Chlorpheniramine Maleate Unknown Oral 4. metformin 850 mg oral tab 2 times per day 5. nortriptyline 35 mg Oral cap daily 6. omeprazole 40 mg oral cpDR once daily 7. verapamil 240 mg Oral TbER 1 tab once daily 8. meclizine 12.5 mg Oral tab 2 times per day 9. Zofran (as hydrochloride) 4 mg oral tab every 8 hours as needed - PMHx: Chronic Renal Insufficiency; Diabetes - NIDDM: controlled; Hypercholesterolemia; Hypertension; Vertigo; - PSHx: Hysterectomy; Knee surgery- Left; Lumbar Puncture; pelvic reconstruction; - Social history: Smoking status: Patient states was never smoker of tobacco. No barriers to communication noted, The patient speaks fluent Malay. - Family history: Not pertinent. - : The pt / caregiver states he / she is not on anticoagulants. Home medication list is obtained from the patient, [employer] import data. - Exposure Risk Screening:: None identified. 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 1 in. (154.94 cm); Pain 7/10; 19:39 BP 135 / 68; Pulse 69; Resp 18; Temp 97.5; Pulse Ox 97% ; Pain 3/10; ajs 21:39 BP 162 / 79; Pulse 61; Resp 18; Temp 97.1; Pulse Ox 95% ; Pain 2/10; ajs 16:10 Body Mass Index 34.96 (83.91 kg, 154.94 cm) cmb MDM: 18:19 NS 0.9% 1000 ml IV at bolus once ordered. mo1 18:19 Ondansetron 4 mg IVP once ordered. mo1 18:19 ketorolac 30 mg IVP once ordered. mo1 18:19 Undress patient appropriately for examination ordered. mo1 18:21 Basic Metabolic Profile Ordered. EDMS 18:21 CBC with Diff Ordered. EDMS 18:21 Lipase Ordered. EDMS 18:21 Liver Profile Ordered. EDMS 18:21 Urinalysis Ordered. EDMS 18:21 Urine Culture Ordered. EDMS 18:21 NOTHING BY MOUTH+DIET ordered. EDMS 19:11 CBC with Diff Reviewed. mo1 19:22 Urinalysis Reviewed. mo1 19:40 CT ABD & PELVIS: IV Contrast Only Ordered. EDMS 19:45 Basic Metabolic Profile Reviewed. mo1 19:45 Liver Profile Reviewed. mo1 19:45 Lipase Reviewed. mo1 21:03 Financial registration complete. [email or web address] 22:51 [facility] Payment Agreement was scanned into [employer] and attached to record. [email or web address] 06/14 11:27 T-Sheet-- Draft Copy was scanned into [employer] and attached to record. gb Administered Medications: 06/13 17:10 Drug: Ondansetron 4 mg [ondansetron HCl 2 mg/mL intravenous solution (2 mL)] Route: ead IVP; Site: left antecubital; 17:12 Drug: ketorolac 30 mg [ketorolac 30 mg/mL (1 mL) injection solution (1 mL)] Route: IVP; ead Site: left antecubital; 19:13 Drug: NS 0.9% 1000 ml [sodium chloride 0.9 % intravenous solution] Route: IV; Rate: ead bolus; Site: left antecubital; 21:48 Follow up: IV Status: Completed infusion; IV Intake: 1000ml dsf Signatures: Dispatcher [employer] Erica Lorenzo RN RN [facility] Jessica Jordan RN RN [facility] Shoshana Sharpe, Reg Reg gb Ryanne Gu RN RN dsf Jack Bean PA PA mo1 Zulma Valencia, Reg Reg ks16 Deana Barclay RN The chart was reviewed and I authenticate all verbal orders and agree with the evaluation and treatment provided.Attachments: 22:51 [facility] Payment Agreement [email or web address] 06/14 11:27 T-Sheet-- Draft Copy gb Chart Complete MTDD
== END 2016-06-13 21:49 | disposition home or self-care (01) ==
LOC: M ED 16:07
DX: S39.012A Strain of muscle, fascia and tendon of lower back, initial encounter (principal); X58.XXXA Exposure to other specified factors, initial encounter; Y92.89 Other specified places as the place of occurrence of the external cause; Y93.89 Activity, other specified; Y99.8 Other external cause status; E86.0 Dehydration; E11.9 Type 2 diabetes mellitus without complications; E78.00 Pure hypercholesterolemia, unspecified; I12.9 Hypertensive chronic kidney disease with stage 1 through stage 4 chronic kidney disease, or unspecified chronic kidney disease; N18.9 Chronic kidney disease, unspecified; H81.49 Vertigo of central origin, unspecified ear; Z79.84 Long term (current) use of oral hypoglycemic drugs; Z79.899 Other long term (current) drug therapy; Z88.1 Allergy status to other antibiotic agents; Z88.8 Allergy status to other drugs, medicaments and biological substances
CPT/HCPCS: 36415; 74177; 80048; 80076; 81001; 83690; 85025; 87086; 96361; 96374; 96375; 99284; J1885; J2405; Q9967

== ENCOUNTER → 2016-07-24 | Outpatient (CLI) | payer MEDICARE, MEDICAID ==
--- NOTE | 2016-07-24 15:38 | REP ---
CHEST, TWO VIEWS: Two views of the chest are performed and compared to prior study 11/14/2014. Calcified granuloma in the left lower lobe is unchanged. There is no evidence of acute infiltrate. The heart is normal in size. There is mild ectasia of the thoracic aorta. The mediastinal silhouette is unchanged. There are mild degenerative changes of the spine. IMPRESSION: No evidence of acute pulmonary disease. Signed by Ari Roberts MD 07/25/2016 09:25 A
== END ==
LOC: M SMT 15:07
PROVIDERS: ATTEND Nurse Practitioner Adult Health
DX: J45.909 Unspecified asthma, uncomplicated (principal)
CPT/HCPCS: 71020; G0463

== ENCOUNTER → 2016-10-20 | Outpatient (REF) | payer MEDICARE, MEDICAID ==
[2016-10-20 13:37] LABS: BASO # 0.1 K/mm3 (0.0-0.2); BASO % 0.8 % (0.0-1.0); EOS # 0.2 K/mm3 (0.0-0.50); EOS % 2.1 % (0.0-3.0); LARGE UNSTAINED CELL # 0.1 K/mm3 (0.0-0.4); LARGE UNSTAINED CELL % 1.8 % (0.0-4.0); LYMPH # 2.2 K/mm3 (1.5-4.5); LYMPH % 25.3 % (24.0-44.0); MEAN CORPUSCULAR HEMOGLOBIN 33.6 pg (27.0-33.0); MEAN CORPUSCULAR HGB CONC 34.7 g/dl (32.0-36.5); MEAN CORPUSCULAR VOLUME 96.7 fl (80.0-96.0); MONO # 0.4 K/mm3 (0.0-0.8); MONO % 4.4 % (0.0-5.0); NEUTROPHILS # 5.3 K/mm3 (1.8-7.7); NEUTROPHILS % 65.7 % (36.0-66.0); PLATELET COUNT, AUTOMATED 314 k/mm3 (150-450); RED CELL DISTRIBUTION WIDTH 12.3 % (11.5-14.5); WHITE BLOOD COUNT 8.1 K/mm3 (4.0-10.0)
[2016-10-20 13:44] LABS: ALBUMIN 3.8 GM/DL (3.2-5.2); ALBUMIN/GLOBULIN RATIO 1.15 (1.00-1.93); ALKALINE PHOSPHATASE 76 U/L (45-117); ALT/SGPT 24 U/L (12-78); ANION GAP 10 MEQ/L (8-16); AST/SGOT 11 U/L (15-37); BILIRUBIN,TOTAL 0.4 MG/DL (0.2-1.0); BLOOD UREA NITROGEN 21 MG/DL (7-18); CALCIUM LEVEL 8.7 MG/DL (8.5-10.1); CARBON DIOXIDE LEVEL 30 MEQ/L (21-32); CHLORIDE LEVEL 97 MEQ/L (98-107); CREATININE FOR GFR 0.92 MG/DL (0.55-1.02); FERRITIN 22 NG/ML (8-252); GLOMERULAR FILTRATION RATE > 60.0 (>51); GLUCOSE, FASTING 93 MG/DL (70-105); PERCENT SATURATION 13.9 % (13.2-37.4); POTASSIUM SERUM 3.8 MEQ/L (3.5-5.1); SODIUM LEVEL 137 MEQ/L (136-145); TOTAL IRON BINDING CAPACITY 374 UG/DL (250-450); TOTAL PROTEIN 7.1 GM/DL (6.4-8.2)
== END ==
LOC: M SFHCPLAZ 11:13
PROVIDERS: ATTEND Family Medicine
DX: N18.2 Chronic kidney disease, stage 2 (mild) (principal); E11.9 Type 2 diabetes mellitus without complications
CPT/HCPCS: 36415; 80053; 82728; 83036; 83550; 84443; 85025; G0463

== ENCOUNTER → 2016-11-14 | Outpatient (REF) | payer MEDICARE, MEDICAID ==
[2016-11-14 14:21] LABS: BASO % 0.6 % (0.0-1.0); EOS # 0.2 K/mm3 (0.0-0.50); EOS % 2.7 % (0.0-3.0); LARGE UNSTAINED CELL # 0.1 K/mm3 (0.0-0.4); LARGE UNSTAINED CELL % 1.4 % (0.0-4.0); LYMPH # 2.2 K/mm3 (1.5-4.5); LYMPH % 29.3 % (24.0-44.0); MEAN CORPUSCULAR HEMOGLOBIN 33.3 pg (27.0-33.0); MEAN CORPUSCULAR HGB CONC 34.6 g/dl (32.0-36.5); MEAN CORPUSCULAR VOLUME 96.4 fl (80.0-96.0); MONO # 0.3 K/mm3 (0.0-0.8); MONO % 3.6 % (0.0-5.0); NEUTROPHILS # 4.6 K/mm3 (1.8-7.7); NEUTROPHILS % 62.5 % (36.0-66.0); PLATELET COUNT, AUTOMATED 303 k/mm3 (150-450); RED CELL DISTRIBUTION WIDTH 12.1 % (11.5-14.5); WHITE BLOOD COUNT 7.3 K/mm3 (4.0-10.0)
[2016-11-14 14:27] LABS: ALBUMIN 3.9 GM/DL (3.2-5.2); ALBUMIN/GLOBULIN RATIO 1.22 (1.00-1.93); BILIRUBIN,TOTAL 0.4 MG/DL (0.2-1.0); CALCIUM LEVEL 9.1 MG/DL (8.5-10.1); CREATININE FOR GFR 1.09 MG/DL (0.55-1.02); GLOMERULAR FILTRATION RATE 55.3 (>51); POTASSIUM SERUM 3.6 MEQ/L (3.5-5.1); TOTAL PROTEIN 7.1 GM/DL (6.4-8.2)
== END ==
LOC: M SFHCPLAZ 12:53
PROVIDERS: ATTEND Family Medicine
DX: K52.9 Noninfective gastroenteritis and colitis, unspecified (principal)
CPT/HCPCS: 36415; 80053; 82150; 83605; 83690; 85025; G0463

== ENCOUNTER → 2016-12-01 | Outpatient (REF) | payer MEDICARE, MEDICAID ==
[~2016-12-01] MED LIST changes: +IBUP-1022 PO; -IBUP600T26 PO; -METF850T PO; +METF850T4 PO; +TOPA1TAB PO; -TOPA25TA10 PO
== END ==
LOC: M SFHCPLAZ 16:55
PROVIDERS: ATTEND Nurse Practitioner Family
DX: N30.01 Acute cystitis with hematuria (principal)
CPT/HCPCS: 81002; 87088; 87186; G0463

== ENCOUNTER → 2017-02-21 | Outpatient (CLI) | payer MEDICARE, MEDICAID ==
--- NOTE | 2017-02-21 13:41 | REPMRS ---
Patient History The patient states she has not had a clinical breast exam in over a year. Patient is postmenopausal. No known family history of cancer. Took estrogen for 6 years. Digital Woman Screen Mammo: February 21, 2017 - Exam #: [id number] Bilateral CC and MLO view(s) were taken. Technologist: Saima Lemus, Technologist Prior study comparison: February 07, 2016, digital woman screen mammo performed at [facility]. January 09, 2014, digital woman screen mammo performed at [facility]. October 22, 2012, digital woman screen mammo performed at [facility]. FINDINGS: The breast tissue is almost entirely fat. There has been no change in the appearance of the mammogram from the prior studies. There is no interval development of dominant mass, architectural distortion, or clustered microcalcification typical of malignancy. ASSESSMENT: BI-RADS/ACR category 1 mammogram. Negative. Recommendation Routine screening mammogram of both breasts in 1 year (for women over age 40). This mammogram was interpreted with the aid of an FDA-approved computer-aided dectection system. Electronically Signed By: Rafa Jane MD 02/21/17 [id number]
== END ==
LOC: M WHC 10:43
PROVIDERS: ATTEND Family Medicine
DX: Z12.31 Encounter for screening mammogram for malignant neoplasm of breast (principal)

== ENCOUNTER → 2017-02-22 | Outpatient (REF) | payer MEDICARE, MEDICAID ==
[2017-02-22 12:49] LABS: ALBUMIN 3.8 GM/DL (3.2-5.2); ALBUMIN/GLOBULIN RATIO 1.15 (1.00-1.93); BILIRUBIN,TOTAL 0.4 MG/DL (0.2-1.0); CALCIUM LEVEL 9.5 MG/DL (8.5-10.1); CREATININE FOR GFR 1.1 MG/DL (0.55-1.02); GLOMERULAR FILTRATION RATE 54.7 (>51); MAGNESIUM LEVEL 1.9 MG/DL (1.8-2.4); POTASSIUM SERUM 3.6 MEQ/L (3.5-5.1); TOTAL PROTEIN 7.1 GM/DL (6.4-8.2)
[2017-02-22 14:54] LABS: BASO # 0.1 K/mm3 (0.0-0.2); BASO % 0.8 % (0.0-1.0); EOS # 0.2 K/mm3 (0.0-0.50); EOS % 2.9 % (0.0-3.0); LARGE UNSTAINED CELL # 0.1 K/mm3 (0.0-0.4); LARGE UNSTAINED CELL % 0.9 % (0.0-4.0); LYMPH # 1.9 K/mm3 (1.5-4.5); LYMPH % 23.7 % (24.0-44.0); MEAN CORPUSCULAR VOLUME 97.1 fl (80.0-96.0); MONO # 0.3 K/mm3 (0.0-0.8); MONO % 4.2 % (0.0-5.0); NEUTROPHILS # 5.3 K/mm3 (1.8-7.7); NEUTROPHILS % 67.6 % (36.0-66.0); PLATELET COUNT, AUTOMATED 304 k/mm3 (150-450); RED CELL DISTRIBUTION WIDTH 12.8 % (11.5-14.5); WHITE BLOOD COUNT 7.8 K/mm3 (4.0-10.0)
== END ==
LOC: M SFHCPLAZ 10:22
PROVIDERS: ATTEND Family Medicine
DX: E78.2 Mixed hyperlipidemia (principal); E11.9 Type 2 diabetes mellitus without complications; E55.9 Vitamin D deficiency, unspecified
CPT/HCPCS: 36415; 80053; 80061; 81001; 82043; 82306; 82550; 83036; 83735; 83970; 85025; 86140; G0463

== ENCOUNTER → 2017-02-23 | Outpatient (CLI) | payer MEDICARE, MEDICAID ==
--- NOTE | 2017-02-23 09:42 | REP ---
Abdominal upper quadrant ultrasound: Comparison is 04/04/2013. There is no cholelithiasis, gallbladder wall thickening or pericholecystic fluid. There is no intrahepatic or extrahepatic biliary duct dilatation, the common duct measures 5.7 mm in diameter. The hepatic parenchyma is homogeneous and otherwise unremarkable. The visualized portion of the pancreatic head is unremarkable. The body and tail are obscured by bowel. There is no right renal calculus, hydronephrosis, mass or cyst. Right kidney is normal size measuring 9.8 cm craniocaudad length. The visualized portion of the upper abdominal aorta is unremarkable. Impression: Essentially negative abdominal right upper quadrant ultrasound. Signed by Ari Dominguez MD 02/23/2017 08:36 A
== END ==
LOC: M RAD 07:49
PROVIDERS: ATTEND Family Medicine
DX: R10.11 Right upper quadrant pain (principal)

== ENCOUNTER → 2017-04-27 | Outpatient (CLI) | payer MEDICARE, MEDICAID ==
--- NOTE | 2017-04-27 10:49 | REP ---
HIDA SCAN WITH GALLBLADDER EJECTION FRACTION: Following the intravenous administration with 6.6 mCi technetium 99m mebrofenin, multiple images of the right upper quadrant are performed for 1 hour. The gallbladder is visualized at 30 minutes postinjection. There is [id number] transit at 15 minutes postinjection. There is no scintigraphic evidence of cholecystitis. At the 1-hour bridget, 8 ounces of Ensure Enlive was ingested and further imaging performed for 1 hour. Gallbladder ejection fraction is calculated to be 59%, which is normal. IMPRESSION: Normal gallbladder ejection fraction. Signed by Ari Roberts MD 04/27/2017 03:47 P
== END ==
LOC: M RAD 07:52
PROVIDERS: ATTEND Family Medicine
DX: R10.11 Right upper quadrant pain (principal)
CPT/HCPCS: 78227; A9537; J2805

== ENCOUNTER → 2017-08-30 | Outpatient (CLI) | payer MEDICARE, MEDICAID ==
[2017-08-30 09:19] LABS: BASO # 0.1 10^3/uL (0.0-0.2); BASO % 0.6 % (0.0-1.0); EOS # 0.2 10^3/uL (0.0-0.50); EOS % 2.6 % (0.0-3.0); HEMATOCRIT 37.5 % (36.0-47.0); HEMOGLOBIN 12.9 g/dl (12.0-16.0); IMMATURE GRANULOCYTE % 0.2 % (0-3.0); LYMPH # 1.9 10^3/uL (1.5-4.5); MEAN CORPUSCULAR HEMOGLOBIN 32.3 pg (27.0-33.0); MEAN CORPUSCULAR HGB CONC 34.4 g/dl (32.0-36.5); MONO # 0.5 10^3/uL (0.0-0.8); MONO % 5.7 % (0.0-5.0); NEUTROPHILS # 6.1 10^3/uL (1.8-7.7); NEUTROPHILS % 69.9 % (36.0-66.0); PLATELET COUNT, AUTOMATED 324 10^3/uL (150-450); RED BLOOD COUNT 3.99 10^6/uL (4.00-5.40); RED CELL DISTRIBUTION WIDTH 12.6 % (11.5-14.5); RETIC HEMOGLOBIN EQUIVALENT 37.7 pg (24-36); RETICULOCYTE # 84.2 10^9/L (17-77); RETICULOCYTE % 2.1 % (0.5-1.5); WHITE BLOOD COUNT 8.8 10^3/uL (4.0-10.0)
[2017-08-30 09:58] LABS: ALBUMIN 3.6 GM/DL (3.2-5.2); ALBUMIN/GLOBULIN RATIO 1.06 (1.00-1.93); ALKALINE PHOSPHATASE 77 U/L (45-117); ALT/SGPT 29 U/L (12-78); ANION GAP 6 MEQ/L (8-16); AST/SGOT 12 U/L (7-37); BILIRUBIN,TOTAL 0.5 MG/DL (0.2-1.0); BLOOD UREA NITROGEN 22 MG/DL (7-18); CALCIUM LEVEL 8.9 MG/DL (8.5-10.1); CARBON DIOXIDE LEVEL 30 MEQ/L (21-32); CHLORIDE LEVEL 99 MEQ/L (98-107); GLOMERULAR FILTRATION RATE 54.5 (>51); GLUCOSE, FASTING 151 MG/DL (70-100); MAGNESIUM LEVEL 1.7 MG/DL (1.8-2.4); POTASSIUM SERUM 3.9 MEQ/L (3.5-5.1); SODIUM LEVEL 135 MEQ/L (136-145)
[2017-08-30 10:05] LABS: VITAMIN B12 LEVEL 1405 PG/ML (247-911)
[2017-08-30 10:48] LABS: ESTIMATED AVERAGE GLUCOSE 160 MG/DL (60-110); HEMOGLOBIN A1c 7.2 %
== END ==
LOC: M LAB 08:15
DX: N18.2 Chronic kidney disease, stage 2 (mild) (principal); E11.22 Type 2 diabetes mellitus with diabetic chronic kidney disease; E53.8 Deficiency of other specified B group vitamins
CPT/HCPCS: 83735

== ENCOUNTER → 2018-01-14 | Outpatient (REF) | payer MEDICARE, MEDICAID ==
[2018-01-14 16:02] LABS: ALBUMIN 3.7 GM/DL (3.2-5.2); ALKALINE PHOSPHATASE 78 U/L (45-117); ALT/SGPT 40 U/L (12-78); ANION GAP 12 MEQ/L (8-16); AST/SGOT 20 U/L (7-37); BILIRUBIN,TOTAL 0.4 MG/DL (0.2-1.0); BLOOD UREA NITROGEN 22 MG/DL (7-18); CALCIUM LEVEL 8.9 MG/DL (8.5-10.1); CARBON DIOXIDE LEVEL 27 MEQ/L (21-32); CHLORIDE LEVEL 99 MEQ/L (98-107); CHOLESTEROL LEVEL 126 MG/DL (<200); CHOLESTEROL RISK RATIO 2.863 (<5); CPK CREATINE PHOSPHOKINASE 52 U/L (26-192); CREATININE FOR GFR 1.27 MG/DL (0.55-1.30); GLOMERULAR FILTRATION RATE 46.2 (>51); GLUCOSE, FASTING 213 MG/DL (70-100); HDL CHOLESTEROL 44 MG/DL (>40); LDL CHOLESTEROL 55.6 MG/DL (<100); NON-HDL-C 82 MG/DL; POTASSIUM SERUM 4.1 MEQ/L (3.5-5.1); SODIUM LEVEL 138 MEQ/L (136-145); TOTAL PROTEIN 7.4 GM/DL (6.4-8.2); TRIGLYCERIDES LEVEL 132 MG/DL (<150)
[2018-01-14 16:09] LABS: ESTIMATED AVERAGE GLUCOSE 169 MG/DL (60-110); HEMOGLOBIN A1c 7.5 %
[2018-01-14 16:10] LABS: PTH INTACT 83.2 PG/ML (18.5-88.0); TOTAL 25(OH) VITAMIN D 51.9 NG/ML (30.0-100.0)
== END ==
LOC: M SFHCPLAZ 13:30
DX: E78.2 Mixed hyperlipidemia (principal); E55.9 Vitamin D deficiency, unspecified; E11.9 Type 2 diabetes mellitus without complications; E53.8 Deficiency of other specified B group vitamins; N18.2 Chronic kidney disease, stage 2 (mild); F33.41 Major depressive disorder, recurrent, in partial remission; F43.10 Post-traumatic stress disorder, unspecified; F41.8 Other specified anxiety disorders; Z68.37 Body mass index [BMI] 37.0-37.9, adult
CPT/HCPCS: 82550

== ENCOUNTER 2018-04-05 09:18 | Day surgery (SDC) | payer MEDICARE, MEDICAID ==
[2018-04-05] MEDS: BISOPROLOL FUMARATE 5 MG TAB PO (10:00)
[2018-04-05] MEDS: NS 1,000 ML IV (10:00)
[2018-04-05] MEDS ORDERED: BISOPROLOL FUMARATE 5 MG TAB As Ordered (10:06)
[2018-04-05] MEDS ORDERED: PROPOFOL 200 MG/20 ML VIAL As Ordered ×2 (11:00)
== END 2018-04-05 11:14 | disposition home or self-care (01) ==
LOC: M OPP 09:18
DX: Z12.11 Encounter for screening for malignant neoplasm of colon (principal); Z86.010 Personal history of colon polyps; K64.8 Other hemorrhoids; I10 Essential (primary) hypertension; E11.9 Type 2 diabetes mellitus without complications; K21.9 Gastro-esophageal reflux disease without esophagitis; G43.909 Migraine, unspecified, not intractable, without status migrainosus; F41.9 Anxiety disorder, unspecified; F32.9 Major depressive disorder, single episode, unspecified; R42 Dizziness and giddiness; M12.9 Arthropathy, unspecified; Z79.899 Other long term (current) drug therapy; Z88.0 Allergy status to penicillin; Z88.8 Allergy status to other drugs, medicaments and biological substances; Z87.09 Personal history of other diseases of the respiratory system; Z90.710 Acquired absence of both cervix and uterus
CPT/HCPCS: G0105

== ENCOUNTER → 2018-10-17 | Outpatient (REF) | payer MEDICARE, MEDICAID ==
[~2018-10-17] MED LIST changes: +ARNU1INH IN; +BISO5TAB5 PO; +CHLO125TA PO; -DRIS50002 PO; +DRIS50003 PO; +HYDR-3715 PO; +JARD1TAB3 PO; -NORCOTAB PO; +OMEP40CA2 PO; +PROAAER10 INH; +VOLT1GEL15 TOP
[2018-10-17 12:39] LABS: ALT/SGPT 30 U/L (12-78); BILIRUBIN,TOTAL 0.6 MG/DL (0.2-1.0); BLOOD UREA NITROGEN 22 MG/DL (7-18); CALCIUM LEVEL 9.5 MG/DL (8.5-10.1); CARBON DIOXIDE LEVEL 29 MEQ/L (21-32); CHLORIDE LEVEL 99 MEQ/L (98-107); CREATININE FOR GFR 1.07 MG/DL (0.55-1.30); GLOMERULAR FILTRATION RATE 56.1 (>51); GLUCOSE, FASTING 112 MG/DL (70-100); MAGNESIUM LEVEL 2.1 MG/DL (1.8-2.4); POTASSIUM SERUM 4.1 MEQ/L (3.5-5.1); SODIUM LEVEL 138 MEQ/L (136-145); TOTAL 25(OH) VITAMIN D 76.6 NG/ML (30.0-100.0); TOTAL PROTEIN 7.2 GM/DL (6.4-8.2)
[2018-10-17 12:40] LABS: PTH INTACT 55.9 PG/ML (18.5-88.0)
[2018-10-17 13:22] LABS: HEMOGLOBIN A1c 6.6 %
[2018-10-18 09:33] LABS: THYROID PEROXIDASE ANTIBODY < 28.0 U/ML (<60.0)
== END ==
LOC: M SFHCPLAZ 09:59
PROVIDERS: ATTEND Family Medicine
DX: I10 Essential (primary) hypertension (principal); E78.2 Mixed hyperlipidemia; E11.9 Type 2 diabetes mellitus without complications; E55.9 Vitamin D deficiency, unspecified

== ENCOUNTER → 2019-03-27 | Outpatient (CLI) | payer MEDICARE, MEDICAID ==
[~2019-03-27] MED LIST changes: -BISO5TAB5 PO; +BISO5TAB9 PO; +CYAN100049 PO; -OMEP40CA2 PO; +OMEP40CA97 PO; -VITA10002 PO
--- NOTE | 2019-03-27 15:11 | REPMRS ---
Patient History The patient states she has not had a clinical breast exam in over a year. No known family history of cancer. Took estrogen for 6 years. Digital Woman Screen Mammo: March 27, 2019 - Exam #: [id number] Bilateral CC and MLO view(s) were taken. Technologist: Suzy Swan Technologist Prior study comparison: February 21, 2017, digital woman screen mammo performed at [facility]. February 07, 2016, digital woman screen mammo performed at [facility]. January 09, 2014, digital woman screen mammo performed at [facility]. FINDINGS: The breast tissue is almost entirely fat. There has been no change in the appearance of the mammogram from the prior studies. There is no interval development of dominant mass, architectural distortion, or grouped microcalcification typical of malignancy. 3-D tomosynthesis shows no additional findings. Assessment: BI-RADS/ACR category 1 mammogram. Negative Mammogram. Recommendation Routine screening mammogram of both breasts in 1 year (for women over age 40). This patient's Lifetime Breast Cancer RIsk is estimated at 7.3 %. This mammogram was interpreted with the aid of an FDA-approved computer-aided dectection system. Electronically Signed By: Rafa Jane MD 03/27/19 [id number]
== END ==
LOC: M WHC 10:04
PROVIDERS: ATTEND Family Medicine
DX: Z12.31 Encounter for screening mammogram for malignant neoplasm of breast (principal); Z92.23 Personal history of estrogen therapy; N18.2 Chronic kidney disease, stage 2 (mild); E11.9 Type 2 diabetes mellitus without complications; E53.8 Deficiency of other specified B group vitamins

== ENCOUNTER → 2019-03-27 | Outpatient (REF) | payer MEDICARE, MEDICAID ==
[2019-03-27 12:56] LABS: BASO # 0.1 10^3/uL (0.0-0.2); BASO % 0.7 % (0.0-1.0); EOS # 0.2 10^3/uL (0.0-0.5); EOS % 1.8 % (0.0-3.0); HEMATOCRIT 41.3 % (36.0-47.0); HEMOGLOBIN 13.6 g/dl (12.0-15.5); LYMPH # 1.7 10^3/uL (1.5-5.0); LYMPH % 18.8 % (24.0-44.0); MEAN CORPUSCULAR HEMOGLOBIN 31.6 pg (27.0-33.0); MEAN CORPUSCULAR HGB CONC 32.9 g/dl (32.0-36.5); MONO # 0.5 10^3/uL (0.0-0.8); MONO % 5.9 % (0.0-5.0); NEUTROPHILS # 6.6 10^3/uL (1.5-8.5); NEUTROPHILS % 72.6 % (36.0-66.0); PLATELET COUNT, AUTOMATED 338 10^3/uL (150-450); WHITE BLOOD COUNT 9.1 10^3/uL (4.0-10.0)
[2019-03-27 13:11] LABS: ALBUMIN 3.8 GM/DL (3.2-5.2); BILIRUBIN,TOTAL 0.8 MG/DL (0.2-1.0); CALCIUM LEVEL 9.5 MG/DL (8.5-10.1); CREATININE FOR GFR 1.12 MG/DL (0.55-1.30); GLOMERULAR FILTRATION RATE 53.2 (>51); POTASSIUM SERUM 4.1 MEQ/L (3.5-5.1); TOTAL PROTEIN 7.1 GM/DL (6.4-8.2)
[2019-03-27 13:16] LABS: HEMOGLOBIN A1c 6.5 %
[2019-03-27 13:17] LABS: APPEARANCE, URINE CLEAR (CLEAR); BACTERIA, URINE AUTO NEGATIVE (NEGATIVE); BILIRUBIN, URINE AUTO NEGATIVE (NEGATIVE); BLOOD, URINE BLOOD NEGATIVE (NEGATIVE); COLOR, URINE YELLOW (YELLOW); GLUCOSE, URINE (UA) AUTO 3+ mg/dL (NEGATIVE); KETONE, URINE AUTO NEGATIVE (NEGATIVE); LEUKOCYTE ESTERASE, URINE AUTO NEGATIVE (NEGATIVE); NITRITE, URINE AUTO NEGATIVE (NEGATIVE); PROTEIN, URINE AUTO NEGATIVE (NEGATIVE); RBC, URINE AUTO 1 /HPF (0-3); SPECIFIC GRAVITY URINE AUTO 1.024 (1.002-1.035); SQUAMOUS EPITHELIAL CELL UR AU 0 /HPF (0-6); UROBILINOGEN, URINE AUTO 0.2 mg/dL (0.0-2.0); WBC, URINE AUTO 0 /HPF (0-3)
[2019-03-27 14:07] LABS: MALB URINE SIEMENS < 5.0 MG/L; MAU/CREAT RATIO 4.5 MCG/MG (0.0-30.0)
== END ==
LOC: M SFHCPLAZ 09:32
PROVIDERS: ATTEND Family Medicine
DX: N18.2 Chronic kidney disease, stage 2 (mild) (principal); E11.9 Type 2 diabetes mellitus without complications; E53.8 Deficiency of other specified B group vitamins

== ENCOUNTER → 2019-08-06 | Outpatient (CLI) | payer MEDICARE, MEDICAID, OTHER ==
[~2019-08-06] MED LIST changes: +BISO5TAB14 PO; -BISO5TAB9 PO; -VERA120T2 PO; +VERA120T9 PO
[2019-08-06 12:20] LABS: BILIRUBIN,TOTAL 0.5 MG/DL (0.2-1.0); CALCIUM LEVEL 9.8 MG/DL (8.5-10.1); CREATININE FOR GFR 1.08 MG/DL (0.55-1.30); FREE T4 1.3 NG/DL (0.76-1.46); GLOMERULAR FILTRATION RATE 55.3 (>51); MAGNESIUM LEVEL 1.9 MG/DL (1.8-2.4); POTASSIUM SERUM 4.2 MEQ/L (3.5-5.1); THYROID STIMULATING HORMONE 2.55 uIU/ML (0.358-3.740); TOTAL 25(OH) VITAMIN D 84.8 NG/ML (30.0-100.0); TOTAL PROTEIN 7.2 GM/DL (6.4-8.2)
[2019-08-06 12:51] LABS: HEMOGLOBIN A1c 6.2 %
== END ==
LOC: M PLALAB 09:36
PROVIDERS: ATTEND Family Medicine
DX: E78.2 Mixed hyperlipidemia (principal); E55.9 Vitamin D deficiency, unspecified; E11.9 Type 2 diabetes mellitus without complications

== ENCOUNTER 2020-05-12 16:14 | Emergency (ER) | payer OTHER, MEDICAID ==
[~2020-05-12] VITALS: Ht 154.9 cm; Wt 82.5 kg
[2020-05-12] MEDS ORDERED: JANU100T PO (17:22)
--- NOTE | 2020-05-12 17:48 | REP ---
INDICATION: fell/swelling left eye. COMPARISON: None. TECHNIQUE: Helical scanning is acquired and axial 3 mm images are re-formatted. Coronal and sagittal MPR images are generated and reviewed. FINDINGS: There is no evidence of orbital margin fracture. The paranasal sinuses are clear. Bony nasal septum is in the midline. No nasal bone or inferior maxillary spine fracture is seen. No intra orbital or periorbital hematoma is appreciated. Visualized intracranial and deep facial soft tissues are unremarkable. Zygomatic arches are intact. IMPRESSION: Negative orbital/maxillofacial CT study. <Electronically signed by Rafa Jane > 05/12/20 [id number]
--- NOTE | 2020-05-12 18:39 | REP ---
INDICATION: fell. COMPARISON: None. TECHNIQUE: Four views. FINDINGS: Four views of the left wrist demonstrate minimal diffuse osteopenia. There is advanced osteoarthritis at the 1st carpometacarpal articulation. Mild spurring is seen at the 1st MCP joint. There is no visible fracture or subluxation. IMPRESSION: No fracture noted. Osteoarthritic changes. <Electronically signed by Rafa Jane > 05/12/20 [id number]
[2020-05-12 18:56] VITALS: BP 167/82
== END 2020-05-12 19:07 | disposition home or self-care (01) ==
LOC: M ED 16:14
DX: S16.1XXA Strain of muscle, fascia and tendon at neck level, initial encounter (principal); S63.622A Sprain of interphalangeal joint of left thumb, initial encounter; S05.12XA Contusion of eyeball and orbital tissues, left eye, initial encounter; W01.0XXA Fall on same level from slipping, tripping and stumbling without subsequent striking against object, initial encounter; Y92.099 Unspecified place in other non-institutional residence as the place of occurrence of the external cause; Y93.9 Activity, unspecified; Y99.9 Unspecified external cause status; E11.9 Type 2 diabetes mellitus without complications; I10 Essential (primary) hypertension; F41.9 Anxiety disorder, unspecified; F32.9 Major depressive disorder, single episode, unspecified; F43.10 Post-traumatic stress disorder, unspecified; K21.9 Gastro-esophageal reflux disease without esophagitis; Z79.899 Other long term (current) drug therapy; Z88.1 Allergy status to other antibiotic agents; Z88.8 Allergy status to other drugs, medicaments and biological substances

== ENCOUNTER → 2020-10-04 | Outpatient (REF) | payer OTHER, MEDICAID ==
[~2020-10-04] MED LIST changes: +JANU100T PO
[2020-10-04 13:42] LABS: BASO # 0.1 10^3/uL (0.0-0.2); BASO % 0.7 % (0.0-1.0); EOS # 0.1 10^3/uL (0.0-0.5); EOS % 1.7 % (0.0-3.0); HEMATOCRIT 41.4 % (36.0-47.0); LYMPH % 25.5 % (24.0-44.0); MEAN CORPUSCULAR HEMOGLOBIN 32.2 pg (27.0-33.0); MEAN CORPUSCULAR HGB CONC 33.8 g/dl (32.0-36.5); MEAN CORPUSCULAR VOLUME 95.2 fl (80.0-96.0); MONO # 0.4 10^3/uL (0.0-0.8); MONO % 5.6 % (2.0-8.0); NEUTROPHILS # 5.1 10^3/uL (1.5-8.5); NEUTROPHILS % 66.2 % (36.0-66.0); PLATELET COUNT, AUTOMATED 332 10^3/uL (150-450); RED BLOOD COUNT 4.35 10^6/uL (4.00-5.40); WHITE BLOOD COUNT 7.6 10^3/uL (4.0-10.0)
[2020-10-04 14:10] LABS: HEMOGLOBIN A1c 5.6 %
[2020-10-04 14:35] LABS: ALBUMIN 3.9 GM/DL (3.2-5.2); BILIRUBIN,TOTAL 0.5 MG/DL (0.2-1.0); CALCIUM LEVEL 10.3 MG/DL (8.8-10.2); CHOLESTEROL RISK RATIO 2.808 (<5); CREATININE FOR GFR 1.08 MG/DL (0.55-1.30); FREE T4 1.24 NG/DL (0.76-1.46); GLOMERULAR FILTRATION RATE 55.1 (>45); POTASSIUM SERUM 3.8 MEQ/L (3.5-5.1); THYROID STIMULATING HORMONE 2.06 uIU/ML (0.358-3.740); TOTAL 25(OH) VITAMIN D 74.7 NG/ML (30.0-100.0); TOTAL PROTEIN 7.3 GM/DL (6.4-8.2)
[2020-10-08 08:09] LABS: D001-IgE D pteronyssinus <0.10 kU/L (Class 0); E001-IgE Cat Epith/Dander < 0.10 kU/L (Class 0); E005-IgE Dog Dander < 0.10 kU/L (Class 0); G002-IgE Bermuda Grass < 0.10 kU/L (Class 0); G008-IgE Kentucky Bluegrass < 0.10 kU/L (Class 0); INSULIN LEVEL 26.1 uIU/mL (2.6-24.9); M001-IgE Penicillium chrysogen < 0.10 kU/L (Class 0); M002 IgE Cladosporium herbaru < 0.10 kU/L (Class 0); M003 IgE Aspergillus fumigatu < 0.10 kU/L (Class 0); M006-IgE Alternaria alternata < 0.10 kU/L (Class 0); T001-IgE Maple/Box Elder < 0.10 kU/L (Class 0); T003-IgE Common Silver Birch < 0.10 kU/L (Class 0); T006-IgE Cedar, Mountain < 0.10 kU/L (Class 0); T007-IgE Oak, White < 0.10 kU/L (Class 0); T008-IgE Elm, American < 0.10 kU/L (Class 0); T015-IgE Ash, White < 0.10 kU/L (Class 0); T041-IgE Hickory, White < 0.10 kU/L (Class 0); T070-IgE White Mulberry < 0.10 kU/L (Class 0); W001-IgE Ragweed, Short < 0.10 kU/L (Class 0); W009-IgE Plantain, English < 0.10 kU/L (Class 0); W014-IgE Pigweed, Rough < 0.10 kU/L (Class 0); W018-IgE Sheep Sorrel < 0.10 kU/L (Class 0)
== END ==
LOC: M SFHCPLAZ 11:11
PROVIDERS: ATTEND Family Medicine
DX: E53.8 Deficiency of other specified B group vitamins (principal); E11.9 Type 2 diabetes mellitus without complications; E78.2 Mixed hyperlipidemia; E55.9 Vitamin D deficiency, unspecified; J30.89 Other allergic rhinitis; G43.809 Other migraine, not intractable, without status migrainosus
CPT/HCPCS: 36415; 80053; 80061; 82306; 82607; 83036; 83525; 83970; 84439; 84443; 85025; 86003; G0463

== ENCOUNTER → 2020-11-23 | Outpatient (REF) | payer OTHER, MEDICAID ==
[~2020-11-23] MED LIST changes: +OMEP40CA4 PO; -OMEP40CA97 PO
[2020-11-23 17:49] LABS: APPEARANCE, URINE HAZY (CLEAR); BACTERIA, URINE AUTO 2+ (NEGATIVE); BILIRUBIN, URINE AUTO NEGATIVE (NEGATIVE); BLOOD, URINE BLOOD 2+ (NEGATIVE); COLOR, URINE YELLOW (YELLOW); GLUCOSE, URINE (UA) AUTO 3+ mg/dL (NEGATIVE); KETONE, URINE AUTO NEGATIVE (NEGATIVE); LEUKOCYTE ESTERASE, URINE AUTO 3+ (NEGATIVE); NITRITE, URINE AUTO POSITIVE (NEGATIVE); PROTEIN, URINE AUTO 1+ mg/dL (NEGATIVE); RBC, URINE AUTO 103 /HPF (0-3); SPECIFIC GRAVITY URINE AUTO 1.023 (1.002-1.035); SQUAMOUS EPITHELIAL CELL UR AU 0 /HPF (0-6); UROBILINOGEN, URINE AUTO 0.2 mg/dL (0.0-2.0); WBC, URINE AUTO TNTC /HPF (0-3)
== END ==
LOC: M SFHCPLAZ 17:03
PROVIDERS: ATTEND Physician Assistant
DX: R30.0 Dysuria (principal)
CPT/HCPCS: 81001; 81002; 87088; 87186; G0463

== ENCOUNTER → 2021-02-24 | Outpatient (REF) | payer OTHER, MEDICAID ==
[2021-02-24 20:20] LABS: APPEARANCE, URINE HAZY (CLEAR); BILIRUBIN, URINE AUTO NEGATIVE (NEGATIVE); BLOOD, URINE BLOOD NEGATIVE (NEGATIVE); COLOR, URINE YELLOW (YELLOW); GLUCOSE, URINE (UA) AUTO 3+ mg/dL (NEGATIVE); KETONE, URINE AUTO NEGATIVE (NEGATIVE); LEUKOCYTE ESTERASE, URINE AUTO 2+ (NEGATIVE); NITRITE, URINE AUTO NEGATIVE (NEGATIVE); PROTEIN, URINE AUTO NEGATIVE (NEGATIVE); SPECIFIC GRAVITY URINE AUTO 1.015 (1.002-1.035); UROBILINOGEN, URINE AUTO 0.2 mg/dL (0.0-2.0)
[2021-02-24 20:31] LABS: BACTERIA, URINE AUTO NEGATIVE (NEGATIVE); MUCUS, URINE SMALL (NEGATIVE); RBC, URINE AUTO 3 /HPF (0-3); SQUAMOUS EPITHELIAL CELL UR AU 0 /HPF (0-6); WBC, URINE AUTO 139 /HPF (0-3)
== END ==
LOC: M SFHCPLAZ 16:57
PROVIDERS: ATTEND Family Medicine
DX: N39.0 Urinary tract infection, site not specified (principal)

== ENCOUNTER → 2021-02-24 | Outpatient (CLI) | payer OTHER, MEDICAID ==
[2021-02-24 19:51] LABS: ALBUMIN 3.7 GM/DL (3.2-5.2); ALT/SGPT 31 U/L (12-78); BILIRUBIN,TOTAL 0.5 MG/DL (0.2-1.0); BLOOD UREA NITROGEN 18 MG/DL (7-18); CALCIUM LEVEL 9.4 MG/DL (8.8-10.2); CARBON DIOXIDE LEVEL 30 MEQ/L (21-32); CHLORIDE LEVEL 97 MEQ/L (98-107); CREATININE FOR GFR 0.89 MG/DL (0.55-1.30); GLOMERULAR FILTRATION RATE > 60.0 (>45); GLUCOSE, FASTING 99 MG/DL (70-100); HEMOGLOBIN A1c 5.9 %; MAGNESIUM LEVEL 2.1 MG/DL (1.8-2.4); NT-PRO BNP 198 PG/ML (<125); POTASSIUM SERUM 3.8 MEQ/L (3.5-5.1); PTH INTACT 66.5 PG/ML (18.5-88.0); SODIUM LEVEL 134 MEQ/L (136-145); TOTAL PROTEIN 7.3 GM/DL (6.4-8.2)
== END ==
LOC: M PLALAB 13:19
PROVIDERS: ATTEND Family Medicine
DX: E11.9 Type 2 diabetes mellitus without complications (principal); I10 Essential (primary) hypertension; Z79.899 Other long term (current) drug therapy
CPT/HCPCS: 36415; 80053; 81001; 83036; 83735; 83880; 83970; 87088; 87186; G0463

== ENCOUNTER → 2021-03-10 | Outpatient (REF) | payer OTHER, MEDICAID ==
[2021-03-10 17:35] LABS: APPEARANCE, URINE CLEAR (CLEAR); BACTERIA, URINE AUTO NEGATIVE (NEGATIVE); BILIRUBIN, URINE AUTO NEGATIVE (NEGATIVE); BLOOD, URINE BLOOD NEGATIVE (NEGATIVE); COLOR, URINE YELLOW (YELLOW); GLUCOSE, URINE (UA) AUTO 3+ mg/dL (NEGATIVE); KETONE, URINE AUTO NEGATIVE (NEGATIVE); LEUKOCYTE ESTERASE, URINE AUTO NEGATIVE (NEGATIVE); NITRITE, URINE AUTO NEGATIVE (NEGATIVE); PROTEIN, URINE AUTO NEGATIVE (NEGATIVE); RBC, URINE AUTO 0 /HPF (0-3); SPECIFIC GRAVITY URINE AUTO 1.025 (1.002-1.035); SQUAMOUS EPITHELIAL CELL UR AU 0 /HPF (0-6); WBC, URINE AUTO 0 /HPF (0-3)
== END ==
LOC: M SFHCPLAZ 16:52
PROVIDERS: ATTEND Physician Assistant Medical
DX: N39.0 Urinary tract infection, site not specified (principal)
CPT/HCPCS: 51798; 81001; 87086; G0463

== ENCOUNTER → 2021-04-07 | Outpatient (CLI) | payer OTHER, MEDICAID ==
--- NOTE | 2021-04-07 15:28 | REP ---
INDICATION: PAIN. COMPARISON: None. TECHNIQUE: Four views FINDINGS: Mild degenerative changes are seen throughout the foot with mild rather symmetric appearing joint space narrowing. There are large plantar and retrocalcaneal heel spurs. IMPRESSION: No acute osseous abnormality. Chronic changes as described above. <Electronically signed by Otf Hull > 04/07/21 [id number]
== END ==
LOC: M PLALAB 14:36
PROVIDERS: ATTEND Physician Assistant Medical
DX: M76.61 Achilles tendinitis, right leg (principal); M77.31 Calcaneal spur, right foot
CPT/HCPCS: 73630; G0463

== ENCOUNTER → 2021-05-20 | Outpatient (CLI) | payer OTHER, MEDICAID | LOC: M PLAIMG 11:55 → M PLARAD 12:24 | PROVIDERS: ATTEND Physician Assistant Medical | DX: M76.61 Achilles tendinitis, right leg (principal); M19.071 Primary osteoarthritis, right ankle and foot ==

== ENCOUNTER → 2021-06-15 | Outpatient (CLI) | payer OTHER, MEDICAID ==
[2021-06-15 13:56] LABS: APPEARANCE, URINE CLEAR (CLEAR); BACTERIA, URINE AUTO NEGATIVE (NEGATIVE); BILIRUBIN, URINE AUTO NEGATIVE (NEGATIVE); BLOOD, URINE BLOOD NEGATIVE (NEGATIVE); COLOR, URINE YELLOW (YELLOW); GLUCOSE, URINE (UA) AUTO 3+ mg/dL (NEGATIVE); KETONE, URINE AUTO NEGATIVE (NEGATIVE); LEUKOCYTE ESTERASE, URINE AUTO NEGATIVE (NEGATIVE); MUCUS, URINE SMALL (NEGATIVE); NITRITE, URINE AUTO NEGATIVE (NEGATIVE); PROTEIN, URINE AUTO NEGATIVE (NEGATIVE); RBC, URINE AUTO 1 /HPF (0-3); SQUAMOUS EPITHELIAL CELL UR AU 1 /HPF (0-6); WBC, URINE AUTO 4 /HPF (0-3)
== END ==
LOC: M PLALAB 12:06
PROVIDERS: ATTEND Family Medicine
DX: N39.0 Urinary tract infection, site not specified (principal)

== ENCOUNTER → 2022-02-21 | Outpatient (CLI) | payer OTHER, MEDICAID ==
[~2022-02-21] MED LIST changes: -DULE200A IN; +MOME13HF7 IN
[2022-02-21 18:00] LABS: BASO % 0.6 % (0.0-1.0); EOS # 0.1 10^3/uL (0.0-0.5); EOS % 1.3 % (0.0-3.0); HEMATOCRIT 40.8 % (36.0-47.0); HEMOGLOBIN 13.7 g/dl (12.0-15.5); LYMPH # 2.1 10^3/uL (1.5-5.0); LYMPH % 29.4 % (24.0-44.0); MEAN CORPUSCULAR HEMOGLOBIN 33.3 pg (27.0-33.0); MEAN CORPUSCULAR HGB CONC 33.6 g/dl (32.0-36.5); MEAN CORPUSCULAR VOLUME 99.3 fl (80.0-96.0); MONO # 0.5 10^3/uL (0.0-0.8); MONO % 6.9 % (2.0-8.0); NEUTROPHILS # 4.4 10^3/uL (1.5-8.5); NEUTROPHILS % 61.5 % (36.0-66.0); PLATELET COUNT, AUTOMATED 297 10^3/uL (150-450); RED BLOOD COUNT 4.11 10^6/uL (4.00-5.40); WHITE BLOOD COUNT 7.2 10^3/uL (4.0-10.0)
[2022-02-21 18:30] LABS: ALT/SGPT 24 U/L (12-78); BILIRUBIN,TOTAL 0.5 MG/DL (0.2-1.0); BLOOD UREA NITROGEN 23 MG/DL (7-18); CALCIUM LEVEL 9.4 MG/DL (8.8-10.2); CARBON DIOXIDE LEVEL 31 MEQ/L (21-32); CHLORIDE LEVEL 97 MEQ/L (98-107); CREATININE FOR GFR 0.92 MG/DL (0.55-1.30); FERRITIN 11 NG/ML (8-252); GLOMERULAR FILTRATION RATE > 60.0 (>45); GLUCOSE, FASTING 89 MG/DL (70-100); MAGNESIUM LEVEL 1.9 MG/DL (1.8-2.4); NT-PRO BNP 250 PG/ML (<125); POTASSIUM SERUM 3.7 MEQ/L (3.5-5.1); SODIUM LEVEL 135 MEQ/L (136-145); TOTAL PROTEIN 7.4 GM/DL (6.4-8.2)
[2022-02-21 18:45] LABS: CREATININE, URINE 80.3 MG/DL; MALB URINE SIEMENS < 5.0 MG/L; MAU/CREAT RATIO 6.2 MCG/MG (0.0-30.0)
[2022-02-21 19:27] LABS: HEMOGLOBIN A1c 5.9 %
[2022-02-21 19:33] LABS: VITAMIN B12 LEVEL 555 PG/ML (247-911)
== END ==
LOC: M PLALAB 13:45
PROVIDERS: ATTEND Family Medicine
DX: E11.9 Type 2 diabetes mellitus without complications (principal); E53.8 Deficiency of other specified B group vitamins; I10 Essential (primary) hypertension

== ENCOUNTER → 2022-04-05 | Outpatient (CLI) | payer OTHER, MEDICAID | LOC: M WHC 12:06 | PROVIDERS: ATTEND Family Medicine | DX: Z12.31 Encounter for screening mammogram for malignant neoplasm of breast (principal) ==

== ENCOUNTER → 2022-09-21 | Outpatient (CLI) | payer OTHER, MEDICAID ==
[2022-09-21 11:31] LABS: BASO # 0.1 10^3/uL (0.0-0.2); BASO % 0.8 % (0.0-1.0); EOS # 0.1 10^3/uL (0.0-0.5); EOS % 1.6 % (0.0-3.0); HEMATOCRIT 41.4 % (36.0-47.0); HEMOGLOBIN 13.8 g/dl (12.0-15.5); LYMPH # 1.8 10^3/uL (1.5-5.0); LYMPH % 22.2 % (24.0-44.0); MEAN CORPUSCULAR HEMOGLOBIN 32.2 pg (27.0-33.0); MEAN CORPUSCULAR HGB CONC 33.3 g/dl (32.0-36.5); MEAN CORPUSCULAR VOLUME 96.7 fl (80.0-96.0); MONO # 0.5 10^3/uL (0.0-0.8); MONO % 6.6 % (2.0-8.0); NEUTROPHILS # 5.4 10^3/uL (1.5-8.5); NEUTROPHILS % 68.7 % (36.0-66.0); PLATELET COUNT, AUTOMATED 293 10^3/uL (150-450); RED BLOOD COUNT 4.28 10^6/uL (4.00-5.40); WHITE BLOOD COUNT 7.9 10^3/uL (4.0-10.0)
[2022-09-21 11:53] LABS: ALBUMIN 3.7 G/DL (3.2-5.2); ALKALINE PHOSPHATASE 68 U/L (46-116); ALT/SGPT 22 U/L (7.0-40); AST/SGOT 16 U/L (<34); BILIRUBIN,TOTAL 0.5 MG/DL (0.3-1.2); BLOOD UREA NITROGEN 25 MG/DL (9-23); CALCIUM LEVEL 9.5 MG/DL (8.3-10.6); CARBON DIOXIDE LEVEL 29 MMOL/L (20-31); CHLORIDE LEVEL 98 MMOL/L (98-107); CREATININE FOR GFR 0.95 MG/DL (0.55-1.30); GLOMERULAR FILTRATION RATE > 60.0 (>45); GLUCOSE, FASTING 125 MG/DL (74-106); POTASSIUM SERUM 3.9 MMOL/L (3.5-5.1); SODIUM LEVEL 135 MMOL/L (136-145); THYROID STIMULATING HORMONE 3.112 uIU/ML (0.55-4.78); TOTAL PROTEIN 6.6 G/DL (5.7-8.2)
[2022-09-21 11:54] LABS: FERRITIN 8.1 NG/ML (7.3-270.7); HEMOGLOBIN A1c 5.7 % (4.0-6.0)
[2022-09-26 03:07] LABS: H PYLORI SERUM QUANT IgG ABY 1.17 (0.00-0.79); SOLUBLE TRANSFERRIN RECEPTOR 17.5 nmol/L (12.2-27.3); TISSUE TRANSGLUTAMINASE IgA <2 U/mL (0-3)
== END ==
LOC: M LAB 09:17
PROVIDERS: ATTEND Family Medicine
DX: E11.9 Type 2 diabetes mellitus without complications (principal); I10 Essential (primary) hypertension; D50.9 Iron deficiency anemia, unspecified; K76.0 Fatty (change of) liver, not elsewhere classified

== ENCOUNTER → 2023-01-30 | Outpatient (REF) | payer OTHER, MEDICAID ==
[~2023-01-30] MED LIST changes: -K-TA10TA2 PO; +POTA-165 PO
[2023-01-30 20:06] LABS: APPEARANCE, URINE HAZY (CLEAR); BACTERIA, URINE AUTO NEGATIVE (NEGATIVE); BILIRUBIN, URINE AUTO NEGATIVE (NEGATIVE); BLOOD, URINE BLOOD NEGATIVE (NEGATIVE); COLOR, URINE YELLOW (YELLOW); GLUCOSE, URINE (UA) AUTO 3+ mg/dL (NEGATIVE); KETONE, URINE AUTO NEGATIVE (NEGATIVE); LEUKOCYTE ESTERASE, URINE AUTO NEGATIVE (NEGATIVE); MUCUS, URINE SMALL (NEGATIVE); NITRITE, URINE AUTO NEGATIVE (NEGATIVE); PROTEIN, URINE AUTO NEGATIVE (NEGATIVE); RBC, URINE AUTO 0 /HPF (0-3); SPECIFIC GRAVITY URINE AUTO 1.018 (1.002-1.035); SQUAMOUS EPITHELIAL CELL UR AU 0 /HPF (0-6); UROBILINOGEN, URINE AUTO 0.2 mg/dL (0.0-2.0); WBC, URINE AUTO 1 /HPF (0-3)
== END ==
LOC: M SFHCPLAZ 17:14
PROVIDERS: ATTEND Family Medicine
DX: N32.81 Overactive bladder (principal); Z79.899 Other long term (current) drug therapy

== ENCOUNTER → 2023-05-02 | Outpatient (CLI) | payer OTHER, MEDICAID ==
[2023-05-02 08:39] LABS: BASO # 0.1 10^3/uL (0.0-0.2); BASO % 0.8 % (0.0-1.0); EOS # 0.2 10^3/uL (0.0-0.5); EOS % 2.1 % (0.0-3.0); HEMATOCRIT 41.6 % (36.0-47.0); LYMPH # 1.7 10^3/uL (1.5-5.0); LYMPH % 23.1 % (24.0-44.0); MEAN CORPUSCULAR HEMOGLOBIN 32.6 pg (27.0-33.0); MEAN CORPUSCULAR HGB CONC 33.7 g/dl (32.0-36.5); MONO # 0.6 10^3/uL (0.0-0.8); MONO % 7.4 % (2.0-8.0); NEUTROPHILS % 66.5 % (36.0-66.0); PLATELET COUNT, AUTOMATED 298 10^3/uL (150-450); RED BLOOD COUNT 4.29 10^6/uL (4.00-5.40); WHITE BLOOD COUNT 7.5 10^3/uL (4.0-10.0)
[2023-05-02 09:13] LABS: ALBUMIN 3.7 G/DL (3.2-5.2); ALKALINE PHOSPHATASE 68 U/L (46-116); ALT/SGPT 20 U/L (7.0-40); AST/SGOT 11 U/L (<34); BILIRUBIN,TOTAL 0.4 MG/DL (0.3-1.2); BLOOD UREA NITROGEN 22 MG/DL (9-23); CALCIUM LEVEL 9.5 MG/DL (8.3-10.6); CARBON DIOXIDE LEVEL 32 MMOL/L (20-31); CHLORIDE LEVEL 100 MMOL/L (98-107); CREATININE FOR GFR 0.82 MG/DL (0.55-1.30); GLOMERULAR FILTRATION RATE > 60.0 (>45); GLUCOSE, FASTING 102 MG/DL (74-106); POTASSIUM SERUM 3.6 MMOL/L (3.5-5.1); SODIUM LEVEL 136 MMOL/L (136-145); TOTAL PROTEIN 7.1 G/DL (5.7-8.2)
[2023-05-02 09:15] LABS: FERRITIN 13.7 NG/ML (7.3-270.7); FREE T4 1.41 NG/DL (0.89-1.76); THYROID STIMULATING HORMONE 6.096 uIU/ML (0.55-4.78); VITAMIN B12 LEVEL 738 PG/ML (211-911)
[2023-05-02 09:18] LABS: HEMOGLOBIN A1c 5.6 % (4.0-6.0)
[2023-05-02 09:24] LABS: INR 0.96; PROTHROMBIN TIME 12.5 SECONDS (12.5-14.5)
[2023-05-02 09:25] LABS: PARTIAL THROMBOPLASTIN TIME 23.9 SECONDS (24.8-34.2)
== END ==
LOC: M LAB 07:54
PROVIDERS: ATTEND Family Medicine
DX: D50.9 Iron deficiency anemia, unspecified (principal); E78.2 Mixed hyperlipidemia; E53.8 Deficiency of other specified B group vitamins; K76.0 Fatty (change of) liver, not elsewhere classified; E11.9 Type 2 diabetes mellitus without complications

== ENCOUNTER → 2023-06-26 | Outpatient (REF) | payer OTHER, MEDICAID | LOC: M SFHCPLAZ 11:26 | PROVIDERS: ATTEND Family Medicine | DX: I10 Essential (primary) hypertension (principal); E11.9 Type 2 diabetes mellitus without complications; D50.9 Iron deficiency anemia, unspecified; E55.9 Vitamin D deficiency, unspecified; E03.9 Hypothyroidism, unspecified ==

== ENCOUNTER → 2023-07-06 | Outpatient (CLI) | payer OTHER, MEDICAID ==
[2023-07-06 11:18] LABS: BASO # 0.1 10^3/uL (0.0-0.2); EOS # 2.9 10^3/uL (0.0-0.5); HEMATOCRIT 39.8 % (36.0-47.0); HEMOGLOBIN 13.8 g/dl (12.0-15.5); LYMPH # 1.7 10^3/uL (1.5-5.0); MEAN CORPUSCULAR HEMOGLOBIN 32.7 pg (27.0-33.0); MEAN CORPUSCULAR HGB CONC 34.7 g/dl (32.0-36.5); MEAN CORPUSCULAR VOLUME 94.3 fl (80.0-96.0); MONO # 0.5 10^3/uL (0.0-0.8); MONO % 4.6 % (2.0-8.0); NEUTROPHILS # 6.3 10^3/uL (1.5-8.5); NEUTROPHILS % 54.4 % (36.0-66.0); PLATELET COUNT, AUTOMATED 309 10^3/uL (150-450); RED BLOOD COUNT 4.22 10^6/uL (4.00-5.40); WHITE BLOOD COUNT 11.6 10^3/uL (4.0-10.0)
[2023-07-06 11:21] LABS: HEMOGLOBIN A1c 5.9 % (4.0-6.0)
[2023-07-06 11:42] LABS: ALBUMIN 3.6 G/DL (3.2-5.2); ALKALINE PHOSPHATASE 105 U/L (46-116); ALT/SGPT 18 U/L (7.0-40); AST/SGOT 12 U/L (<34); BILIRUBIN,TOTAL 0.5 MG/DL (0.3-1.2); BLOOD UREA NITROGEN 15 MG/DL (9-23); CALCIUM LEVEL 9.1 MG/DL (8.3-10.6); CARBON DIOXIDE LEVEL 30 MMOL/L (20-31); CHLORIDE LEVEL 98 MMOL/L (98-107); CREATININE FOR GFR 0.92 MG/DL (0.55-1.30); GLOMERULAR FILTRATION RATE > 60.0 (>45); GLUCOSE, FASTING 114 MG/DL (74-106); MAGNESIUM LEVEL 1.6 MG/DL (1.8-2.4); POTASSIUM SERUM 3.6 MMOL/L (3.5-5.1); PTH INTACT 40.4 PG/ML (18.5-88.0); SODIUM LEVEL 131 MMOL/L (136-145)
[2023-07-06 11:44] LABS: THYROID PEROXIDASE ANTIBODY 33 U/ML (<60.0); TOTAL 25(OH) VITAMIN D 108.8 NG/ML (20.0-100.0)
[2023-07-06 11:45] LABS: FERRITIN 11.7 NG/ML (7.3-270.7)
[2023-07-06 11:56] LABS: EOS % 24.7 % (0.0-3.0)
== END ==
LOC: M LAB 10:39
PROVIDERS: ATTEND Family Medicine
DX: I10 Essential (primary) hypertension (principal); E11.9 Type 2 diabetes mellitus without complications; D50.9 Iron deficiency anemia, unspecified; E55.9 Vitamin D deficiency, unspecified; E03.9 Hypothyroidism, unspecified

== ENCOUNTER → 2023-07-12 | Outpatient (REF) | payer OTHER, MEDICAID | LOC: M SFHCPLAZ 13:16 | PROVIDERS: ATTEND Physician Assistant Medical | DX: J02.9 Acute pharyngitis, unspecified (principal) ==

== ENCOUNTER → 2024-02-12 | Outpatient (CLI) | payer OTHER, MEDICAID | LOC: M PLAIMG 13:48 | PROVIDERS: ATTEND Physician Assistant Medical | DX: M25.569 Pain in unspecified knee (principal) ==

== ENCOUNTER → 2024-04-11 | Outpatient (CLI) | payer OTHER, MEDICAID ==
[2024-04-11 18:09] LABS: BASO # 0.1 10^3/uL (0.0-0.2); BASO % 0.9 % (0.0-1.0); EOS # 0.2 10^3/uL (0.0-0.5); EOS % 2.7 % (0.0-3.0); HEMATOCRIT 40.8 % (36.0-47.0); HEMOGLOBIN 13.5 g/dl (12.0-15.5); LYMPH # 2.5 10^3/uL (1.5-5.0); MEAN CORPUSCULAR HEMOGLOBIN 32.4 pg (27.0-33.0); MEAN CORPUSCULAR HGB CONC 33.1 g/dl (32.0-36.5); MEAN CORPUSCULAR VOLUME 97.8 fl (80.0-96.0); MONO # 0.6 10^3/uL (0.0-0.8); MONO % 7.8 % (2.0-8.0); NEUTROPHILS # 4.4 10^3/uL (1.5-8.5); NEUTROPHILS % 56.3 % (36.0-66.0); PLATELET COUNT, AUTOMATED 317 10^3/uL (150-450); RED BLOOD COUNT 4.17 10^6/uL (4.00-5.40); WHITE BLOOD COUNT 7.8 10^3/uL (4.0-10.0)
[2024-04-11 18:28] LABS: ALBUMIN 3.8 G/DL (3.2-5.2); BILIRUBIN,TOTAL 0.5 MG/DL (0.3-1.2); CALCIUM LEVEL 9.7 MG/DL (8.3-10.6); CREATININE FOR GFR 1.08 MG/DL (0.55-1.30); GLOMERULAR FILTRATION RATE 54.5 (>45); POTASSIUM SERUM 3.7 MMOL/L (3.5-5.1); PTH INTACT 66.2 PG/ML (18.5-88.0); TOTAL PROTEIN 7.6 G/DL (5.7-8.2)
[2024-04-11 18:29] LABS: FERRITIN 14.1 NG/ML (7.3-270.7); THYROID STIMULATING HORMONE 2.081 uIU/ML (0.55-4.78); TOTAL 25(OH) VITAMIN D 100.3 NG/ML (20.0-100.0)
[2024-04-11 18:31] LABS: FREE T4 1.39 NG/DL (0.89-1.76)
[2024-04-11 18:41] LABS: HEMOGLOBIN A1c 5.6 % (4.0-6.0)
== END ==
LOC: M PLALAB 16:01
PROVIDERS: ATTEND Family Medicine
DX: D50.9 Iron deficiency anemia, unspecified (principal); E55.9 Vitamin D deficiency, unspecified; I10 Essential (primary) hypertension; E11.9 Type 2 diabetes mellitus without complications

== ENCOUNTER → 2024-05-30 | Outpatient (CLI) | payer OTHER, MEDICAID | LOC: M WHC 13:29 | PROVIDERS: ATTEND Family Medicine | DX: Z12.31 Encounter for screening mammogram for malignant neoplasm of breast (principal); M85.851 Other specified disorders of bone density and structure, right thigh; R92.323 Mammographic fibroglandular density, bilateral breasts ==

== ENCOUNTER → 2024-08-21 | Outpatient (CLI) | payer MEDICARE, MEDICAID ==
[2024-08-21 16:07] LABS: BASO # 0.1 10^3/uL (0.0-0.2); EOS # 0.3 10^3/uL (0.0-0.5); LYMPH # 2.1 10^3/uL (1.5-5.0); LYMPH % 29.2 % (24.0-44.0); MEAN CORPUSCULAR HEMOGLOBIN 33.4 pg (27.0-33.0); MEAN CORPUSCULAR HGB CONC 33.3 g/dl (32.0-36.5); MEAN CORPUSCULAR VOLUME 100.3 fl (80.0-96.0); MONO # 0.5 10^3/uL (0.0-0.8); MONO % 7.2 % (2.0-8.0); NEUTROPHILS # 4.2 10^3/uL (1.5-8.5); NEUTROPHILS % 58.5 % (36.0-66.0); PLATELET COUNT, AUTOMATED 291 10^3/uL (150-450); RED BLOOD COUNT 3.89 10^6/uL (4.00-5.40); WHITE BLOOD COUNT 7.2 10^3/uL (4.0-10.0)
[2024-08-21 16:14] LABS: HEMOGLOBIN A1c 5.8 % (4.0-6.0)
[2024-08-21 16:20] LABS: ALBUMIN 3.7 G/DL (3.2-5.2); BILIRUBIN,TOTAL 0.3 MG/DL (0.3-1.2); CALCIUM LEVEL 9.2 MG/DL (8.3-10.6); CHOLESTEROL RISK RATIO 3.02 (<5); CREATININE FOR GFR 1.04 MG/DL (0.55-1.30); GLOMERULAR FILTRATION RATE 56.8 (>45); HDL CHOLESTEROL 44.7 MG/DL (>40); LDL CHOLESTEROL 67.7 MG/DL (<100); NON-HDL-C 90.3 MG/DL; POTASSIUM SERUM 3.8 MMOL/L (3.5-5.1); TOTAL PROTEIN 7.2 G/DL (5.7-8.2)
[2024-08-21 16:21] LABS: FERRITIN 7.4 NG/ML (7.3-270.7); THYROID STIMULATING HORMONE 2.541 uIU/ML (0.55-4.78)
[2024-08-21 16:22] LABS: FREE T4 1.39 NG/DL (0.89-1.76)
== END ==
LOC: M PLALAB 13:43
PROVIDERS: ATTEND Family Medicine
DX: D50.9 Iron deficiency anemia, unspecified (principal); I10 Essential (primary) hypertension; E11.9 Type 2 diabetes mellitus without complications; E78.2 Mixed hyperlipidemia; I50.32 Chronic diastolic (congestive) heart failure